=== PATIENT | male | born 1955 | race Caucasian/White ===

== ENCOUNTER 2018-04-17 19:19 | Inpatient (IN) | payer MEDICARE, OTHER ==
[2018-04-17 19:19] VITALS: BMI 31.4
[2018-04-17] MEDS ORDERED: Vancomycin 1 GM 1 GM/250 ML BAG IVPB STA (20:15)
[2018-04-17] MEDS ORDERED: Piperacillin/Tazobact 3.375 gm 100 ML IV STA (20:15)
[2018-04-17] MEDS ORDERED: Piperacillin/Tazobact 3.375 gm 100 ML IVPB ONE (20:42)
[2018-04-17 20:43] LABS: BASO # 0.1 K/uL (0.0-0.2); BASO % 0.9 % (0.0-2.0); EOS # 0.5 K/uL (0.0-0.7); EOS % 5.2 % (0.0-4.0); HEMOGLOBIN 13.5 g/dL (12.0-18.0); LYMPH # 1.8 K/uL (1.0-4.3); LYMPH % 19.7 % (20.0-40.0); MEAN CELL VOLUME 87.5 fL (80.0-94.0); MEAN CORPUSCULAR HEMOGLOBIN 28.7 pg (27.0-31.0); MEAN CORPUSCULAR HGB CONC 32.9 g/dL (33.0-37.0); MEAN PLATELET VOLUME 9.4 fL (7.2-11.7); MONO # 1.2 K/uL (0.0-0.8); NEUT # 5.5 K/uL (1.8-7.0); NEUT % 61.2 % (50.0-75.0); RBC 4.69 Mil/uL (4.40-5.90); RED CELL DISTRIBUTION WIDTH 13.2 % (11.5-14.5)
[2018-04-17 20:46] LABS: URINE BILIRUBIN NEGATIVE (NEGATIVE); URINE BLOOD NEGATIVE (NEGATIVE); URINE CLARITY Clear (Clear); URINE COLOR Yellow (YELLOW); URINE GLUCOSE (UA) NORMAL (Normal); URINE LEUKOCYTE ESTERASE NEG Leu/uL (Negative); URINE PROTEIN NEGATIVE (NEGATIVE); URINE UROBILINOGEN NORMAL mg/dL (0.2-1.0)
[2018-04-17 20:51] LABS: PROTHROMBIN TIME 11.3 SECONDS (9.7-12.2)
[2018-04-17 20:57] LABS: ALB/GLOB RATIO 1.2 (1.0-2.1); ALBUMIN 3.6 g/dL (3.5-5.0); ALT/SGPT 9 U/L (21-72); AST/SGOT 17 U/L (17-59); BLOOD UREA NITROGEN 24 mg/dL (9-20); GFR NON-AFRICAN AMERICAN > 60
--- NOTE | 2018-04-17 21:02 | C.PDOC ---
History Of Present Illness 62 year old male with PMHx of DM presents to the ED accompanied by his for evaluation of left buttock ulcer for the past 3 days. Patient denies fever, chills, nausea, vomit, injury, fall, trauma, rash. Time Seen by Provider: 04/17/18 20:05 Chief Complaint (Nursing): Abnormal Skin Integrity History Per: Patient History/Exam Limitations: no limitations Onset/Duration Of Symptoms: Days (3) Location Of Injury: Left: Buttock Quality Of Symptoms: Painful, Swollen Recent travel outside of the [place]: No Additional History Per: Patient Past Medical History Reviewed: Historical Data, Nursing Documentation, Vital Signs Vital Signs: Last Vital Signs Temp 98 F 04/17/18 19:41 Pulse 78 04/17/18 19:41 Resp 18 04/17/18 19:41 BP 155/88 H 04/17/18 19:41 Pulse Ox 98 04/17/18 19:41 - Medical History PMH: Diabetes Surgical History: No Surg Hx Denies: Pacemaker - [facility] Procedures CORONAR ARTERIOGR-2 CATH (11/17/12) INSERTION OF ONE VASCULAR STENT (11/17/12) INSRT OF DRUG-ELUTING CORON ARTERY STENTS(S) (11/17/12) LEFT HEART CARDIAC CATH (11/17/12) LT HEART ANGIOCARDIOGRAM (11/17/12) PERCUTANEOUS TRANSLUMINAL CORONARY ANGIOPLASTY [PTCA] (11/17/12) PROCEDURE ON SINGLE VESSEL (11/17/12) Family History: States: Unknown Family Hx - Social History Hx Alcohol Use: No Hx Substance Use: No - Immunization History Hx Tetanus Toxoid Vaccination: No Hx Influenza Vaccination: No Hx Pneumococcal Vaccination: No Review Of Systems Constitutional: Negative for: Fever, Chills Cardiovascular: Negative for: Chest Pain, Palpitations Respiratory: Negative for: Shortness of Breath Gastrointestinal: Negative for: Nausea, Vomiting, Abdominal Pain Musculoskeletal: Positive for: Leg Pain Skin: Positive for: Other (ulcer) Neurological: Negative for: Weakness, Numbness, Headache Physical Exam - Physical Exam Appears: Non-toxic, No Acute Distress Skin: Normal Color, Warm, Dry, Other (5x5 cm large area with central eschar, surrounding erythema to the keft mid buttock. no fluctuance) Head: Atraumatic, Normacephalic Eye(s): bilateral: Normal Inspection Neck: Normal ROM, Supple Chest: Symmetrical Cardiovascular: Rhythm Regular Respiratory: Normal Breath Sounds, No Rales, No Rhonchi, No Wheezing Gastrointestinal/Abdominal: Soft, No Tenderness, No Guarding, No Rebound Extremity: Normal ROM, No Tenderness, No Swelling Neurological/Psych: Oriented x3, Normal Speech, Normal Cognition Gait: Steady ED Course And Treatment - Laboratory Results Result Diagrams: 04/17/18 20:40 04/17/18 20:40 Lab Results: PT 11.3 SECONDS (9.7-12.2) 04/17/18 20:40 INR 1.0 04/17/18 20:40 APTT 30 SECONDS (21-34) 04/17/18 20:40 Total Bilirubin 0.2 mg/dL (0.2-1.3) 04/17/18 20:40 AST 17 U/L (17-59) 04/17/18 20:40 ALT 9 U/L (21-72) L 04/17/18 20:40 Alkaline Phosphatase 82 U/L (38-126) 04/17/18 20:40 Total Protein 6.6 g/dL (6.3-8.3) 04/17/18 20:40 Albumin 3.6 g/dL (3.5-5.0) 04/17/18 20:40 Globulin 3.0 gm/dL (2.2-3.9) 04/17/18 20:40 Albumin/Globulin Ratio 1.2 (1.0-2.1) 04/17/18 20:40 Urine Color Yellow (YELLOW) 04/17/18 20:40 Urine Clarity Clear (Clear) 04/17/18 20:40 Urine pH 5.0 (5.0-8.0) 04/17/18 20:40 Ur Specific [place] 1.023 (1.003-1.030) 04/17/18 20:40 Urine Protein Negative mg/dL (NEGATIVE) 04/17/18 20:40 Urine Glucose (UA) Normal mg/dL (Normal) 04/17/18 20:40 Urine Ketones Negative mg/dL (NEGATIVE) 04/17/18 20:40 Urine Blood Negative (NEGATIVE) 04/17/18 20:40 Urine Nitrate Negative (NEGATIVE) 04/17/18 20:40 Urine Bilirubin Negative (NEGATIVE) 04/17/18 20:40 Urine Urobilinogen Normal mg/dL (0.2-1.0) 04/17/18 20:40 Ur Leukocyte Esterase Neg [place]/uL (Negative) 04/17/18 20:40 Urine WBC (Auto) < 1 /hpf (0-5) 04/17/18 20:40 Urine RBC (Auto) 1 /hpf (0-3) 04/17/18 20:40 Lab Interpretation: Normal ECG: Interpreted By Ri ECG Rhythm: Sinus Rhythm ECG Interpretation: Normal Rate From EC O2 Sat by Pulse Oximetry: 98 (On RA) Pulse Ox Interpretation: Normal - Radiology CXR: Interpreted by Ri CXR Interpretation: Yes: No Acute Disease Reevaluation Time: 21:00 Reassessment Condition: Improved - Physician Consult Information Outcome Of Conversation: 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 Yañez for Gen Surg. 2030: d/w Gen Surg Leandro- will eval Medical Decision Making Medical Decision Making: chronic L buttock diabetic ulcer probably older than 3 days per HPI Disposition Doctor Will See Patient In The: Office Counseled Patient/Family Regarding: Studies Performed, Diagnosis - Disposition Disposition: HOME/ ROUTINE Disposition Time: 21:02 Condition: GOOD - Clinical Impression Clinical Impression: Skin lesion - Scribe Statement The provider has reviewed the documentation as recorded by the Scribe Ceferino Eastman All medical record entries made by the Scribe were at my direction and perso rcuz dictated by me. I have reviewed the chart and agree that the record accurately reflects my personal performance of the history, physical exam, medical decision making, and the department course for this patient. I have also personally directed, reviewed, and agree with the discharge instructions and disposition.
[2018-04-17] MEDS ORDERED: Vancomycin 1 GM 1 GM/250 ML BAG IVPB ONE (21:11)
[2018-04-17] MEDS: (Novolin R) Insulin Human Regular 100 units/ml vial SC SCH (22:06)
--- NOTE | 2018-04-17 22:07 | CP.PCM.CON ---
<Bettye Craig - Last Filed: 04/18/18 08:36> History of Present Illness - History of Present Illness History of Present Illness: Consult note for Dr. Menard Consulted for abscess/ infection of the buttock in a diabetic Patient is a 62 M with PMH HTN, HLD, DM, CAD s/p stents 2012 on effient who presents with painful infected wound on the left buttock area. patient states this began 3-4 days ago with pain, swelling and redness which have increased since that time. patient endorses fevers and chills but otherwise denies ENG, CP, SOB, abdominal pain, n/v, stool changes, blood in stool, dysuria and extremity pain/weakness. PMH:HTN, HLD, CAD s/p stents 2012, DM PSH: Umbilical hernia repair, adenoidectomy Home medications: Metformin, metoprolol, ranexa, effient, montelukast, simvasta tin, norvasc, losartan ALL: NKDA Social: denies smoking, ETOH and illicit drug use Review of Systems - Review of Systems All systems: reviewed and no additional remarkable complaints except Review of Systems: as per HPI Past Patient History - Past Social History Smoking Status: Never Smoked - CARDIAC Hx Pacemaker: No - NEUROLOGICAL Hx Paralysis: No - MUSCULOSKELETAL/RHEUMATOLOGICAL Hx Musculoskeletal Disorders: No - PSYCHIATRIC Hx Substance Use: No - SURGICAL HISTORY Hx Surgeries: Yes - ANESTHESIA Hx Malignant Hyperthermia: No Meds Allergies/Adverse Reactions: Allergies Allergy/AdvReac Type Severity Reaction Status Date / Time No Known Allergies Allergy Verified 11/16/12 15:37 - Medications Medications: Current Medications Amlodipine Besylate (Norvasc) 10 mg PO DAILY [facility] Home Med (Metformin Hcl [Fortamet]) 500 mg PO BID [facility] Home Med (Simvastatin [Simvastatin]) 20 mg PO DAILY [facility] Insulin Human Regular (Novolin R) 0 unit SC ACHS [facility]; Protocol Losartan Potassium (Cozaar) 100 mg PO DAILY [facility] Metoprolol Succinate (Toprol Xl) 100 mg PO DAILY [facility] Montelukast Sodium (Singulair) 10 mg PO DAILY [facility] Prasugrel (Effient) 10 mg PO DAILY [facility] Ranolazine (Ranexa) 500 mg PO DAILY [facility] Physical Exam - Constitutional Appears: Well, Non-toxic, No Acute Distress - Head Exam Head Exam: ATRAUMATIC, NORMOCEPHALIC - Eye Exam Eye Exam: EOMI - ENT Exam ENT Exam: Mucous Membranes Moist - Respiratory Exam Respiratory Exam: NORMAL BREATHING PATTERN - Cardiovascular Exam Cardiovascular Exam: REGULAR RHYTHM. absent: Tachycardia - GI/Abdominal Exam GI & Abdominal Exam: Soft. absent: Distended, Guarding, Tenderness - Extremities Exam Extremities exam: Negative for: calf tenderness, pedal edema - Neurological Exam Neurological exam: Alert, Oriented x3 - Psychiatric Exam Psychiatric exam: Normal Affect, Normal Mood - Skin Additional comments: large 12 cm x 13 cm area of erythema and induration over the left buttock, central area of necrosis and fibrotic tissue, no areas of fluctuance felt, entire area is tender to palpation Results - Vital Signs Recent Vital Signs: Last Vital Signs Temp 98 F 04/17/18 19:41 Pulse 78 04/17/18 19:41 Resp 18 04/17/18 19:41 BP 155/88 H 04/17/18 19:41 Pulse Ox 98 04/17/18 21:02 - Labs Result Diagrams: 04/17/18 20:40 04/17/18 20:40 Labs: Laboratory Results - last 24 hr 04/17/18 04/17/18 04/17/18 19:38 20:40 20:40 WBC 9.0 RBC 4.69 Hgb 13.5 Hct 41.0 MCV 87.5 MCH 28.7 MCHC 32.9 L RDW 13.2 Plt Count 244 MPV 9.4 Neut % (Auto) 61.2 Lymph % (Auto) 19.7 L [place] % (Auto) 13.0 H Eos % (Auto) 5.2 H Baso % (Auto) 0.9 Neut # (Auto) 5.5 Lymph # (Auto) 1.8 [place] # (Auto) 1.2 H Eos # (Auto) 0.5 Baso # (Auto) 0.1 PT 11.3 INR 1.0 APTT 30 Sodium Potassium Chloride Carbon Dioxide Anion Gap BUN Creatinine Est GFR ( Amer) Est GFR (Non-Af Amer) POC Glucose (mg/dL) 147 H Random Glucose Calcium Total Bilirubin AST ALT Alkaline Phosphatase Troponin I Total Protein Albumin Globulin Albumin/Globulin Ratio Urine Color Urine Clarity Urine pH Ur Specific [place] Urine Protein Urine Glucose (UA) Urine Ketones Urine Blood Urine Nitrate Urine Bilirubin Urine Urobilinogen Ur Leukocyte Esterase Urine WBC (Auto) Urine RBC (Auto) 04/17/18 04/17/18 20:40 20:40 WBC RBC Hgb Hct MCV MCH MCHC RDW Plt Count MPV Neut % (Auto) Lymph % (Auto) [place] % (Auto) Eos % (Auto) Baso % (Auto) Neut # (Auto) Lymph # (Auto) [place] # (Auto) Eos # (Auto) Baso # (Auto) PT INR APTT Sodium 139 Potassium 4.6 Chloride 103 Carbon Dioxide 30 Anion Gap 11 BUN 24 H Creatinine 1.2 Est GFR ( Amer) > 60 Est GFR (Non-Af Amer) > 60 POC Glucose (mg/dL) Random Glucose 126 H Calcium 9.0 Total Bilirubin 0.2 AST 17 ALT 9 L Alkaline Phosphatase 82 Troponin I < 0.0120 Total Protein 6.6 Albumin 3.6 Globulin 3.0 Albumin/Globulin Ratio 1.2 Urine Color Yellow Urine Clarity Clear Urine pH 5.0 Ur Specific [place] 1.023 Urine Protein Negative Urine Glucose (UA) Normal Urine Ketones Negative Urine Blood Negative Urine Nitrate Negative Urine Bilirubin Negative Urine Urobilinogen Normal Ur Leukocyte Esterase Neg Urine WBC (Auto) < 1 Urine RBC (Auto) 1 Assessment & Plan - Assessment and Plan (Free Text) Assessment: 62 yr old male with PMH DM, HTN, HLD and CAD s/p stents on Effient Plan: Plan: Warm compresses Q4 continue abx hold effient CT pelvis with IV contrast likely I/D in AM will discuss with Dr. Sailaja Craig, PGY 1 - Date & Time Date: 04/17/18 Time: 21:45 <Hany Menard - Last Filed: 04/25/18 20:41> Results - Vital Signs Recent Vital Signs: Last Vital Signs Temp 98.1 F 04/23/18 08:00 Pulse 63 04/23/18 08:00 Resp 20 04/23/18 08:00 BP 157/71 H 04/23/18 08:00 Pulse Ox 95 04/23/18 08:00 - Labs Result Diagrams: 04/22/18 07:41 04/22/18 07:41 Attending/Attestation - Attestation I have personally seen and examined this patient.: Yes I have fully participated in the care of the patient.: Yes I have reviewed all pertinent clinical information: Yes Notes (Text): Pt was seen and examined at bedside Agree with above note and assessment Pt with DM with Left gluteal abscess Gluteal area : Severe cellulitis with abscess present Labs and radiology reviewed Ass: Left gluteal cellulitis with underlying absces Plan: IV antibiotics At present, pt does not need I & D. Control Blood sugar C/w current mx Plan d.w pt in detail Risk and benefit explained in detail.
[2018-04-17] MEDS ORDERED: Oxycodone/Acetaminophen 5/325 mg Tab PO PRN (22:09)
[2018-04-17] MEDS ORDERED: Iohexol 350mg/ml 100 ML ONE (22:34)
[2018-04-18] MEDS: Sodium Chloride 0.9% 1,000 ML IV SCH ×2 (05:14→13:33)
[2018-04-18] MEDS: Tramadol 25 mg PO PRN (05:41)
--- NOTE | 2018-04-18 07:50 | CP.PCM.PN ---
<CraigBettye graves - Last Filed: 04/18/18 08:32> Subjective - Date & Time of Evaluation Date of Evaluation: 04/18/18 Time of Evaluation: 06:40 - Subjective Subjective: General Surgery progress note for Dr. Menard Patient seen and examined this am at bedside. No acute events overnight. pt indicates pain is slightly improved and has been well controlled overnight. He otherwise denies ENG, CP, SOB, F/C, N/V, abdominal pain, stool changes, dysuria and extremity pain/weakness. Objective - Vital Signs/Intake and Output Vital Signs (last 24 hours): Temp Pulse Resp BP Pulse Ox 97.9 F 70 20 128/67 98 04/18/18 01:00 04/18/18 01:00 04/18/18 01:00 04/18/18 01:00 04/18/18 04:00 Intake and Output: 04/18/18 04/18/18 06:59 18:59 Intake Total 200 Balance 200 - Medications Medications: Current Medications Acetaminophen (Tylenol 325mg Tab) 650 mg PO Q6 PRN PRN Reason: Pain, Mild (1-3) Amlodipine Besylate (Norvasc) 10 mg PO DAILY [facility] Home Med (Metformin Hcl [Fortamet]) 500 mg PO BID [facility] Home Med (Simvastatin [Simvastatin]) 20 mg PO DAILY [facility] Sodium Chloride (Sodium Chloride 0.9%) 1,000 mls @ 115 mls/hr IV .[id number] [facility] Last Admin: 04/18/18 05:14 Dose: 115 mls/hr Insulin Human Regular (Novolin R) 0 unit SC ACHS [facility]; Protocol Last Admin: 04/17/18 22:06 Dose: Not Given Losartan Potassium (Cozaar) 100 mg PO DAILY [facility] Metoprolol Succinate (Toprol Xl) 100 mg PO DAILY [facility] Montelukast Sodium (Singulair) 10 mg PO DAILY [facility] Prasugrel (Effient) 10 mg PO DAILY [facility] Ranolazine (Ranexa) 500 mg PO DAILY [facility] Tramadol HCl (Ultram) 25 mg PO TID PRN PRN Reason: Pain, moderate (4-7) Last Admin: 04/18/18 05:41 Dose: 25 mg - Labs Labs: 04/17/18 20:40 04/17/18 20:40 PT 11.3 SECONDS (9.7-12.2) 04/17/18 20:40 INR 1.0 04/17/18 20:40 APTT 30 SECONDS (21-34) 04/17/18 20:40 - Constitutional Appears: Well, Non-toxic, No Acute Distress - Head Exam Head Exam: ATRAUMATIC, NORMOCEPHALIC - Eye Exam Eye Exam: EOMI - ENT Exam ENT Exam: Mucous Membranes Moist - Respiratory Exam Respiratory Exam: NORMAL BREATHING PATTERN - Cardiovascular Exam Cardiovascular Exam: REGULAR RHYTHM - GI/Abdominal Exam GI & Abdominal Exam: Soft. absent: Distended, Tenderness - Extremities Exam Extremities Exam: Full ROM. absent: Calf Tenderness, Pedal Edema - Neurological Exam Neurological Exam: Alert, Awake, Oriented x3 - Psychiatric Exam Psychiatric exam: Normal Affect, Normal Mood - Skin Additional comments: large 12 cm x 13 cm area of erythema and induration over the left buttock, central area of necrosis and fibrotic tissue, no areas of fluctuance felt, entire area is tender to palpation Assessment and Plan - Assessment and Plan (Free Text) Assessment: 62 yr old male with left buttock abscess Plan: Plan: c/w abx I&D this AM with packing and wound cultures pain control as needed DM, CAD, HTN and HLD management as per primary will d/w maya Carey recs per him Bettye Briones, PGY 1 <Hany Menard B - Last Filed: 04/25/18 20:43> Objective - Vital Signs/Intake and Output Vital Signs (last 24 hours): Temp Pulse Resp BP Pulse Ox 98.1 F 63 20 157/71 H 95 04/23/18 08:00 04/23/18 08:00 04/23/18 08:00 04/23/18 08:00 04/23/18 08:00 - Labs Labs: 04/22/18 07:41 04/22/18 07:41 PT 11.3 SECONDS (9.7-12.2) 04/17/18 20:40 INR 1.0 04/17/18 20:40 APTT 30 SECONDS (21-34) 04/17/18 20:40 Attending/Attestation - Attestation I have personally seen and examined this patient.: Yes I have fully participated in the care of the patient.: Yes I have reviewed all pertinent clinical information, including history, physical exam and plan: Yes Notes (Text): Pt was seen and examined at bedside Agree with above note and assessment Pt is improving clinically Cellulitis has improved with IV antibiotics OR for I & D and Debridement tomorrow Consent NPO, IVF c.w current mx Plan d.w pt in detail Risk and benefit explained in detail.
[2018-04-18] MEDS: (Novolin R) Insulin Human Regular 100 units/ml vial SC SCH ×4 (08:30→21:26)
[2018-04-18 08:47] LABS: BASO # 0.1 K/uL (0.0-0.2); BASO % 0.8 % (0.0-2.0); EOS # 0.5 K/uL (0.0-0.7); EOS % 5.3 % (0.0-4.0); HEMOGLOBIN 13.1 g/dL (12.0-18.0); LYMPH # 1.7 K/uL (1.0-4.3); LYMPH % 16.3 % (20.0-40.0); MEAN CELL VOLUME 86.5 fL (80.0-94.0); MEAN CORPUSCULAR HEMOGLOBIN 29.1 pg (27.0-31.0); MEAN CORPUSCULAR HGB CONC 33.7 g/dL (33.0-37.0); MEAN PLATELET VOLUME 9.4 fL (7.2-11.7); NEUT % 67.6 % (50.0-75.0); RBC 4.5 Mil/uL (4.40-5.90); RED CELL DISTRIBUTION WIDTH 13.1 % (11.5-14.5); WHITE BLOOD COUNT 10.3 K/uL (4.8-10.8)
[2018-04-18 09:08] LABS: ALB/GLOB RATIO 1.1 (1.0-2.1); ALBUMIN 3.2 g/dL (3.5-5.0); ALT/SGPT 11 U/L (21-72); AST/SGOT 29 U/L (17-59); BLOOD UREA NITROGEN 19 mg/dL (9-20); CALCIUM 8.4 mg/dl (8.6-10.4); GFR NON-AFRICAN AMERICAN > 60
[2018-04-18] MEDS ORDERED: Home Med 1 UNIT (Simvastatin [Simvastatin] 20 MG) PO SCH (10:00)
[2018-04-18] MEDS ORDERED: METFORMIN HCL 500 MG PO SCH (10:00)
[2018-04-18] MEDS: Ranolazine 500 mg Extended Release Tablets PO SCH (10:18)
[2018-04-18] MEDS: Metoprolol Succinate 100 mg XL Tab PO SCH (10:18)
--- NOTE | 2018-04-18 10:19 | RAD ---
Date of service: 04/17/2018 HISTORY: SOB COMPARISON: None available. FINDINGS: LUNGS: No active pulmonary disease. PLEURA: No significant pleural effusion identified, no pneumothorax apparent. CARDIOVASCULAR: No aortic atherosclerotic calcification present. Normal cardiac size. No pulmonary vascular congestion. OSSEOUS STRUCTURES: No significant abnormalities. VISUALIZED UPPER ABDOMEN: Normal. OTHER FINDINGS: None. IMPRESSION: No active disease.
--- NOTE | 2018-04-18 12:17 | CP.PCM.CON ---
History of Present Illness - History of Present Illness History of Present Illness: INFECTIOUS DISEASE CONSULT; HPI; 62 year old male with PMH HTN, HLD, DM, CAD s/p stents 2012 on effient ,asthma ,who presents with painful infected wound on the left buttock area. Patient states this began 3-4 days ago with pain, swelling and redness which have increased since that time. Patient endorses fevers and chills but otherwise denies ENG, CP, SOB, abdominal pain, n/v, stool changes, blood in stool, dysuria and extremity pain/weakness. INFECTIOUS DISEASE CONSULTATION REQUESTED BY PMD FOR LEFT BUTTOCK ABSCESS. pATIENT DENIES ANY PREVIOUS SUCH INFECTION. PATIENT IS BEING SEEN BY SURGERY FOR DEBRIDEMENT. PMH:HTN, HLD, CAD s/p stents 2012, DM,BRONCHIAL ASTHMA. PSH: Umbilical hernia repair, adenoidectomy Home medications: Metformin, metoprolol, ranexa, effient, montelukast, simvastatin, norvasc, losartan Social: denies smoking, ETOH and illicit drug use ALLERGY; NKA. Review of Systems - Constitutional Constitutional: Chills, Fever - EENT Eyes: absent: Change in Vision Nose/Mouth/Throat: absent: Mouth Lesions - Cardiovascular Cardiovascular: absent: Chest Pain, Dyspnea - Respiratory Respiratory: absent: Cough - Gastrointestinal Gastrointestinal: absent: Abdominal Pain, Diarrhea, Nausea, Vomiting - Genitourinary Genitourinary: absent: Dysuria, Hematuria - Musculoskeletal Musculoskeletal: Radiating Pain into Limb - Integumentary Integumentary: Rash (LEFT BUTTOCK, STARTING WITH A SMALL PIMPLE AND PRESENTLY ENLARGING WITH ERYTHEMA AND WARMTH.) - Hematologic/Lymphatic Hematologic: As Per HPI. absent: Easy Bleeding, Easy Bruising, Lymphadenopathy Past Patient History - Past Social History Smoking Status: Never Smoked - CARDIAC Hx Pacemaker: No - NEUROLOGICAL Hx Paralysis: No - MUSCULOSKELETAL/RHEUMATOLOGICAL Hx Musculoskeletal Disorders: No - PSYCHIATRIC Hx Substance Use: No - SURGICAL HISTORY Hx Surgeries: Yes - ANESTHESIA Hx Malignant Hyperthermia: No Meds Allergies/Adverse Reactions: Allergies Allergy/AdvReac Type Severity Reaction Status Date / Time No Known Allergies Allergy Verified 11/16/12 15:37 - Medications Medications: Current Medications Acetaminophen (Tylenol 325mg Tab) 650 mg PO Q6 PRN PRN Reason: Pain, Mild (1-3) Amlodipine Besylate (Norvasc) 10 mg PO DAILY [facility] Last Admin: 04/18/18 10:18 Dose: 10 mg Home Med (Metformin Hcl [Fortamet]) 500 mg PO BID [facility] Sodium Chloride (Sodium Chloride 0.9%) 1,000 mls @ 115 mls/hr IV .Q8H42M [facility] Last Admin: 04/18/18 05:14 Dose: 115 mls/hr Insulin Human Regular (Novolin R) 0 unit SC ACHS [facility]; Protocol Last Admin: 04/18/18 08:30 Dose: Not Given Losartan Potassium (Cozaar) 100 mg PO DAILY [facility] Last Admin: 04/18/18 10:18 Dose: 100 mg Metoprolol Succinate (Toprol Xl) 100 mg PO DAILY [facility] Last Admin: 04/18/18 10:18 Dose: 100 mg Montelukast Sodium (Singulair) 10 mg PO DAILY [facility] Last Admin: 04/18/18 10:18 Dose: 10 mg Prasugrel (Effient) 10 mg PO DAILY [facility] Ranolazine (Ranexa) 500 mg PO DAILY [facility] Last Admin: 04/18/18 10:18 Dose: 500 mg Rosuvastatin Calcium (Crestor) 5 mg PO [facility] Tramadol HCl (Ultram) 25 mg PO TID PRN PRN Reason: Pain, moderate (4-7) Last Admin: 04/18/18 05:41 Dose: 25 mg Physical Exam - Constitutional Appears: No Acute Distress - Head Exam Head Exam: NORMAL INSPECTION - Eye Exam Eye Exam: EOMI, PERRL - ENT Exam ENT Exam: Mucous Membranes Moist, Normal Oropharynx - Neck Exam Neck exam: Positive for: Normal Inspection - Respiratory Exam Respiratory Exam: Clear to Auscultation Bilateral, NORMAL BREATHING PATTERN - Cardiovascular Exam Cardiovascular Exam: REGULAR RHYTHM, +S1, +S2 - GI/Abdominal Exam GI & Abdominal Exam: Normal Bowel Sounds, Soft - Extremities Exam Extremities exam: Positive for: tenderness (arge 12 cm x 13 cm area of erythema and induration over the left buttock, central area of necrosis and fibrotic tissue, no areas of fluctuance felt, entire area is tender to palpation). Nega tive for: calf tenderness, pedal edema - Neurological Exam Neurological exam: Alert, CN II-XII Intact, Oriented x3, Reflexes Normal - Psychiatric Exam Psychiatric exam: Normal Mood - Skin Skin Exam: Normal Color, Warm Results - Vital Signs Recent Vital Signs: Last Vital Signs Temp 97.8 F 04/18/18 08:48 Pulse 71 04/18/18 08:48 Resp 20 04/18/18 08:48 BP 126/69 04/18/18 08:48 Pulse Ox 96 04/18/18 08:48 - Labs Result Diagrams: 04/19/18 06:10 04/19/18 06:10 Labs: Laboratory Results - last 24 hr 04/17/18 04/17/18 04/17/18 19:38 20:40 20:40 WBC 9.0 RBC 4.69 Hgb 13.5 Hct 41.0 MCV 87.5 MCH 28.7 MCHC 32.9 L RDW 13.2 Plt Count 244 MPV 9.4 Neut % (Auto) 61.2 Lymph % (Auto) 19.7 L Terrell % (Auto) 13.0 H Eos % (Auto) 5.2 H Baso % (Auto) 0.9 Neut # (Auto) 5.5 Lymph # (Auto) 1.8 Terrell # (Auto) 1.2 H Eos # (Auto) 0.5 Baso # (Auto) 0.1 PT 11.3 INR 1.0 APTT 30 Sodium Potassium Chloride Carbon Dioxide Anion Gap BUN Creatinine Est GFR ( Amer) Est GFR (Non-Af Amer) POC Glucose (mg/dL) 147 H Random Glucose Calcium Total Bilirubin AST ALT Alkaline Phosphatase Troponin I Total Protein Albumin Globulin Albumin/Globulin Ratio Urine Color Urine Clarity Urine pH Ur Specific [place] Urine Protein Urine Glucose (UA) Urine Ketones Urine Blood Urine Nitrate Urine Bilirubin Urine Urobilinogen Ur Leukocyte Esterase Urine WBC (Auto) Urine RBC (Auto) 04/17/18 04/17/18 04/17/18 20:40 20:40 22:02 WBC RBC Hgb Hct MCV MCH MCHC RDW Plt Count MPV Neut % (Auto) Lymph % (Auto) Terrell % (Auto) Eos % (Auto) Baso % (Auto) Neut # (Auto) Lymph # (Auto) Terrell # (Auto) Eos # (Auto) Baso # (Auto) PT INR APTT Sodium 139 Potassium 4.6 Chloride 103 Carbon Dioxide 30 Anion Gap 11 BUN 24 H Creatinine 1.2 Est GFR ( Amer) > 60 Est GFR (Non-Af Amer) > 60 POC Glucose (mg/dL) 111 H Random Glucose 126 H Calcium 9.0 Total Bilirubin 0.2 AST 17 ALT 9 L Alkaline Phosphatase 82 Troponin I < 0.0120 Total Protein 6.6 Albumin 3.6 Globulin 3.0 Albumin/Globulin Ratio 1.2 Urine Color Yellow Urine Clarity Clear Urine pH 5.0 Ur Specific [place] 1.023 Urine Protein Negative Urine Glucose (UA) Normal Urine Ketones Negative Urine Blood Negative Urine Nitrate Negative Urine Bilirubin Negative Urine Urobilinogen Normal Ur Leukocyte Esterase Neg Urine WBC (Auto) < 1 Urine RBC (Auto) 1 04/18/18 04/18/18 04/18/18 08:31 08:31 08:35 WBC 10.3 RBC 4.50 Hgb 13.1 Hct 38.9 MCV 86.5 MCH 29.1 MCHC 33.7 RDW 13.1 Plt Count 248 MPV 9.4 Neut % (Auto) 67.6 Lymph % (Auto) 16.3 L Terrell % (Auto) 10.0 Eos % (Auto) 5.3 H Baso % (Auto) 0.8 Neut # (Auto) 7.0 Lymph # (Auto) 1.7 Terrell # (Auto) 1.0 H Eos # (Auto) 0.5 Baso # (Auto) 0.1 PT INR APTT Sodium 138 Potassium 4.3 Chloride 105 Carbon Dioxide 30 Anion Gap 8 L BUN 19 Creatinine 0.9 Est GFR ( Amer) > 60 Est GFR (Non-Af Amer) > 60 POC Glucose (mg/dL) 108 Random Glucose 113 H Calcium 8.4 L Total Bilirubin 0.2 AST 29 ALT 11 L D Alkaline Phosphatase 77 Troponin I Total Protein 6.0 L Albumin 3.2 L Globulin 2.8 Albumin/Globulin Ratio 1.1 Urine Color Urine Clarity Urine pH Ur Specific [place] Urine Protein Urine Glucose (UA) Urine Ketones Urine Blood Urine Nitrate Urine Bilirubin Urine Urobilinogen Ur Leukocyte Esterase Urine WBC (Auto) Urine RBC (Auto) 04/18/18 11:25 WBC RBC Hgb Hct MCV MCH MCHC RDW Plt Count MPV Neut % (Auto) Lymph % (Auto) Terrell % (Auto) Eos % (Auto) Baso % (Auto) Neut # (Auto) Lymph # (Auto) Terrell # (Auto) Eos # (Auto) Baso # (Auto) PT INR APTT Sodium Potassium Chloride Carbon Dioxide Anion Gap BUN Creatinine Est GFR ( Amer) Est GFR (Non-Af Amer) POC Glucose (mg/dL) 178 H Random Glucose Calcium Total Bilirubin AST ALT Alkaline Phosphatase Troponin I Total Protein Albumin Globulin Albumin/Globulin Ratio Urine Color Urine Clarity Urine pH Ur Specific [place] Urine Protein Urine Glucose (UA) Urine Ketones Urine Blood Urine Nitrate Urine Bilirubin Urine Urobilinogen Ur Leukocyte Esterase Urine WBC (Auto) Urine RBC (Auto) Assessment & Plan (1) Left buttock abscess Status: Acute (2) Diabetes mellitus Status: Acute (3) HTN (hypertension) Status: Acute (4) Asthma Status: Acute - Assessment and Plan (Free Text) Plan: PANCULTURE ESR CRP CONTINUE iv zOSYN 3.375 EVERY 8 HOURLY.04/17/18 CONTINUE iv VANCOMYCIN 1 G LOADING DOSE GIVEN F/U 750 MG EVERY 12 HOURLY . 04/17/18 WARM COMPRESSES EVERY [address] OF THE PELVIS WITH iv CONTRAST 04/17/18 REVIEWED-PHLEGMON/CELLULITIS -5.7CM INCISION AND DRAINAGE OF THE ABSCESS PER SURGERY. Will follow the patient and adjust antibiotics after obtaining cultures.
--- NOTE | 2018-04-18 12:35 | CT ---
Date of service: 04/17/2018 PROCEDURE: CT Pelvis with contrast HISTORY: abscess r/o nec fasc COMPARISON: None available. TECHNIQUE: Contiguous axial images of the pelvis with contrast. Coronal and sagittal reformats generated. Contrast dose: Omnipaque 350, 100 cc Radiation dose: Total exam DLP = 452.93 mGy-cm. This CT exam was performed using one or more of the following dose reduction techniques: Automated exposure control, adjustment of the mA and/or kV according to patient size, and/or use of iterative reconstruction technique. FINDINGS: BLADDER: Unremarkable. No mass. REPRODUCTIVE ORGANS: Unremarkable. VISUALIZED BOWEL: Unremarkable. PERITONEUM: Unremarkable, as visualized. No free fluid. No free air. LYMPH NODES: Unremarkable. No enlarged lymph nodes. VASCULATURE: No aortic atherosclerotic calcification or mural plaque present. BONES: No fracture or focal lesion. OTHER FINDINGS: Increased density of the subcutaneous fat is appreciated deep to thickened dermis at the lateral left buttocks measuring 5.7 x 2.2 cm compatible with patient's known left buttock wound. No enhancement is seen in in a peripheral pattern of suggest an abscess or lucency in the core making this likely phlegmon rather than abscess. Microabscess not completely excluded. No density changes are seen related to the left buttocks musculature. No emphysematous soft tissue changes are identified either. Further clinical correlation recommended. IMPRESSION: Left buttocks cellulitis/phlegmon 5.7 cm greatest dimension within superficial and mid depth subcutaneous fat. No emphysema is seen or prominent abscess. The differential diagnosis for this area would be hematoma/acute inflammatory reaction and others. Concordant preliminary report from Alex, 04/17/2018 11:42 p.m.. Concordant preliminary report from Alex, 04/17/2018 11:42 p.m..
[2018-04-18] MEDS: Piperacill/Tazo 3.375gm in Dex 3.375 GM/50 ML BAG IVPB SCH ×2 (13:32→21:06)
[2018-04-19] MEDS: Sodium Chloride 0.9% 1,000 ML IV SCH ×3 (00:04→16:31)
[2018-04-19] MEDS: Tramadol 25 mg PO PRN ×2 (00:05→23:49)
[2018-04-19] MEDS: Piperacill/Tazo 3.375gm in Dex 3.375 GM/50 ML BAG IVPB SCH ×3 (04:10→21:56)
[2018-04-19] MEDS: Vancomycin 750mg/NS 150 ml 150 ML IVPB SCH ×2 (04:56→16:31)
[2018-04-19 06:16] LABS: HEMOGLOBIN 13.1 g/dL (12.0-18.0); MEAN CELL VOLUME 87.9 fL (80.0-94.0); MEAN PLATELET VOLUME 9.3 fL (7.2-11.7); RBC 4.51 Mil/uL (4.40-5.90); RED CELL DISTRIBUTION WIDTH 13.1 % (11.5-14.5); WHITE BLOOD COUNT 9.5 K/uL (4.8-10.8)
[2018-04-19 06:41] LABS: IRON 40 ug/dL (49-181)
[2018-04-19 06:43] LABS: BLOOD UREA NITROGEN 17 mg/dL (9-20); CALCIUM 8.6 mg/dl (8.6-10.4); GFR NON-AFRICAN AMERICAN > 60; HDL CHOLESTEROL 19 mg/dL (30-70)
[2018-04-19 06:51] LABS: % IRON SATURATION 15 (20-55); TOTAL IRON BINDING CAPACITY 277 ug/dL (250-450)
[2018-04-19 06:53] LABS: LDL CHOLESTEROL 66 mg/dL (0-129)
[2018-04-19 07:47] LABS: FOLATE 12.2 ng/mL
--- NOTE | 2018-04-19 07:47 | HP ---
The patient was seen and examined at the bedside, 04/18/2018. was sitting on the bedside also. CHIEF COMPLAINT: Abscess on the buttock. HISTORY OF PRESENT ILLNESS: Mr. Michele Silverio is a 62-year-old male with past medical history of diabetes mellitus, came to the emergency room with his for evaluation of the left buttock abscess for the past three days. The patient denies fever, chills, nausea, vomiting, diarrhea, hematuria or hematochezia. No headache or dizziness. No chest pain or palpitation, but having intractable pain in the abscess. Has abnormal skin integrity. It is painful and swollen. We admitted the patient. Surgical consult called with Dr. Menard and tomorrow he will take the patient to OR for incision and drainage. Discussion done with the patient, with Dr. Menard's resident. PAST MEDICAL HISTORY: Diabetes mellitus. SURGICAL HISTORY: Not significant. HABITS: No smoking. No drug. No ethanol. ALLERGIES: THE PATIENT IS NOT ALLERGIC WITH ANY MEDICATION. HOME MEDICATIONS: Reviewed by me. REVIEW OF SYSTEMS: The patient was seen and examined on the bedside. was sitting on bedside also. Left buttock abscess has a dressing. No fever. No chills. No hematuria or hematochezia. No headache or dizziness. No chest pain. No palpitation. PHYSICAL EXAMINATION: VITAL SIGNS: Temperature 98, pulse 80, blood pressure 133/62, respiratory rate 20. HEENT: Head, normocephalic and atraumatic. Eyes PERRLA. Extraocular muscles are intact. Conjunctivae clear. Nose patent. NECK: Supple. No carotid bruits. No JVD or thyromegaly. CHEST: Bilaterally symmetrical. HEART: S1 and S2 positive. LUNGS: Clear to auscultation. ABDOMEN: Soft. Bowel sounds present. No organomegaly. EXTREMITIES: No edema. No cyanosis. Left buttock has a big abscess that had dressing, red and warm, tender. NEUROLOGIC: The patient is awake and alert. Follows simple commands. LABORATORY DATA: White blood cells 10.3, hemoglobin 13.1, hematocrit 38.9, platelets 248. Sodium 138, potassium 4.3, BUN 19, creatinine 0.9, glucose 198, calcium 8.4. ASSESSMENT AND PLAN: Mr. Michele Silverio is a 62-year-old male with diabetes mellitus, uncontrolled; hypocalcemia; low protein; came with abscess on the left buttock. Pelvic CT done. Seen by surgeon. Plan is for 04/19/2018, incision and drainage of gluteal abscess. Consent obtained. Continue warm compresses, intravenous antibiotics, pain management. After midnight, nothing by mouth as per Surgery. Pelvic CT shows left buttock cellulitis/phlegmon 5.7 cm in greatest diameter with superficial and mid depth subcutaneous fat. No empyema is seen or prominent abscess. The differential diagnosis of the area would be hematoma inflammation . Discussion done with the . Continue antibiotics per Infectious Disease. We will follow up. Ginger Olea MD MTDD
[2018-04-19] MEDS: (Novolin R) Insulin Human Regular 100 units/ml vial SC SCH ×4 (08:19→21:49)
--- NOTE | 2018-04-19 09:16 | CARD ---
APPROVED REPORT Date of service: 04/17/2018 EKG Measurement Heart [id number] <Conclusion> Normal sinus rhythm Normal ECG
[2018-04-19] MEDS: Metoprolol Succinate 100 mg XL Tab PO SCH (10:37)
[2018-04-19] MEDS: Ranolazine 500 mg Extended Release Tablets PO SCH (10:37)
[2018-04-19] MEDS ORDERED: Piperacillin/Tazobact 3.375 gm 100 ML IVPB ONE (13:20)
[2018-04-19] MEDS ORDERED: Propofol 10 mg/ml Inj (20 ML) ONE (13:29)
[2018-04-19] MEDS ORDERED: Midazolam 2 MG/2 ML VIAL ONE (13:29)
[2018-04-19] MEDS: Bupivacaine 0.25% 20 ML INJ IJ ONE ×2 (13:32→14:05)
[2018-04-19] MEDS: Lidocaine/Epinephrine 1% 1:100000 10 ML IJ ONE ×2 (13:32→14:04)
[2018-04-19] MEDS ORDERED: HYDROmorphone 0.5 mg/0.5 ml ISec IVP PRN (14:20)
--- NOTE | 2018-04-19 14:20 | PCM.SURG1 ---
Surgeon's Initial Post Op Note - Surgeon's Notes Surgeon: MD Sailaja Ethylene Compressor Operator: Tuyet PGY3 Pre-Operative Diagnosis: Left buttock abscess Operative Findings: left buttock necrotic tissue, purulent fluid Post-Operative Diagnosis: Left buttock abscess Operation Performed: Left buttock abscess incision and drainage, debridement of necrotic tissue Specimen/Specimens Removed: culture of abscess, necrotic tissue Estimated Blood Loss: EBL {In ML}: 10 Date of Surgery/Procedure: 04/19/18 Time of Surgery/Procedure: 14:20
[2018-04-19 15:55] VITALS: RESP 20
--- NOTE | 2018-04-19 20:42 | CP.PCM.PN ---
Subjective - Date & Time of Evaluation Date of Evaluation: 04/19/18 Time of Evaluation: 20:42 - Subjective Subjective: CHIEF COMPLAINTS TODAY : afebrile, s/p I & D LEFT BUTTOCK ABSCESS no acute events overnight ROS. HEENT : N. Resp : No cough, wheezing ,pleuritic CP ,or hemoptysis Cardio : No anginal CP, PND, orthopnea, palpitation GI : No abd.pain, n/v ,diarrhea or GI bleeding . ACID DUMPER : No headache, vertigo, focal deficit. Musculoskel : No joint swelling , Derm : No rash Psych : Normal affect. Ext : No swelling ,calf pain +VE DRY DRESSING IN PLACE PE. Pt. is alert awake in no distress. V.S As noted in the chart Head ,ear nose,throat and eyes : Normal. Neck : Supple with normal carotids. Lungs: Clear air entry. Heart : S1 & S2 normal with S4. No murmur. Abd : Soft non tender with normal bowel sounds. Neuro : Moves all ext. with no localized deficit. Ext : No edema with intact pulses.Non tender calves Derm : No rashes / decubitus ulcer.+VE DRY DRESSING IN PLACE S/P DEBRIDEMENT.LT BUTTOCK ABSCESS. LABS/RADIOLOGY: REVIEWED Objective - Vital Signs/Intake and Output Vital Signs (last 24 hours): Temp Pulse Resp BP Pulse Ox 97.5 F L 98 H 20 134/63 96 04/19/18 17:49 04/19/18 17:49 04/19/18 17:49 04/19/18 17:49 04/19/18 17:49 Intake and Output: 04/19/18 04/20/18 18:59 06:59 Intake Total 2235 Output Total 200 Balance 2035 - Medications Medications: Current Medications Acetaminophen (Tylenol 325mg Tab) 650 mg PO Q6 PRN PRN Reason: Pain, Mild (1-3) Amlodipine Besylate (Norvasc) 10 mg PO DAILY [facility] Last Admin: 04/19/18 10:37 Dose: Not Given Sodium Chloride (Sodium Chloride 0.9%) 1,000 mls @ 115 mls/hr IV .Q8H42M [facility] Last Admin: 04/19/18 16:31 Dose: 115 mls/hr Piperacillin Sod/Tazobactam Sod (Zosyn 3.375 Gm Iv Premix) 3.375 gm in 50 mls @ 100 mls/hr IVPB Q8H [facility]; Protocol Last Admin: 04/19/18 13:21 Dose: Not Given Vancomycin HCl (Vancocin 750mg/Ns 150 Ml) 150 mls @ 100 mls/hr IVPB Q12H [facility]; Protocol Last Admin: 04/19/18 16:31 Dose: 100 mls/hr Influenza Virus Vaccine (Flucelvax Quad 5935-9901 Syr) 60 mcg IM .ONCE ONE Stop: 04/20/18 10:01 Insulin Human Regular (Novolin R) 0 unit SC ACHS [facility]; Protocol Last Admin: 04/19/18 17:35 Dose: 1 units Losartan Potassium (Cozaar) 100 mg PO DAILY [facility] Last Admin: 04/19/18 10:37 Dose: 100 mg Metformin [facility] ([facility]) [facility] Last Admin: 04/19/18 17:35 Dose: 500 mg Metoprolol Succinate (Toprol Xl) 100 mg PO DAILY [facility] Last Admin: 04/19/18 10:37 Dose: 100 mg Montelukast Sodium (Singulair) 10 mg PO DAILY [facility] Last Admin: 04/19/18 10:37 Dose: Not Given Pneumococcal Polyvalent Vaccine (Pneumovax 23 Vaccine) 0.5 ml IM .ONCE ONE Stop: 04/20/18 10:01 Prasugrel (Effient) 10 mg PO DAILY [facility] Ranolazine (Ranexa) 500 mg PO DAILY [facility] Last Admin: 04/19/18 10:37 Dose: Not Given Rosuvastatin Calcium (Crestor) 5 mg PO HS [facility] Last Admin: 04/18/18 21:05 Dose: 5 mg Tramadol HCl (Ultram) 25 mg PO TID PRN PRN Reason: Pain, moderate (4-7) Last Admin: 04/19/18 00:05 Dose: 25 mg - Labs Labs: 04/19/18 06:10 04/19/18 06:10 PT 11.3 SECONDS (9.7-12.2) 04/17/18 20:40 INR 1.0 04/17/18 20:40 APTT 30 SECONDS (21-34) 04/17/18 20:40 Assessment and Plan (1) Left buttock abscess Status: Acute (2) Diabetes mellitus Status: Acute (3) HTN (hypertension) Status: Acute (4) Asthma Status: Acute - Assessment and Plan (Free Text) Plan: CONTINUE iv ZOSYN 3.375 EVERY 8 HOURLY.04/18/18 CONTINUE iv VANCOMYCIN 750 MG EVERY 12 HOURLY . 04/18/18 F/U VANCO TROUGH PRIOR TO 4TH DOSEAND KEEP BETWEEEN 10- 20MG/L F/U CULTURES TO ADJUST ABX LOCAL WOUND CARE PER SURGERY.
--- NOTE | 2018-04-20 01:37 | OP ---
PROCEDURE DATE: 04/19/2018 PREOPERATIVE DIAGNOSES: 1. Left gluteal abscess. 2. Left gluteal cellulitis. 3. Skin necrosis. POSTOPERATIVE DIAGNOSES: 1. Left gluteal abscess. 2. Left gluteal cellulitis. 3. Skin necrosis. PROCEDURES DONE: 1. Incision and drainage of left gluteal abscess. 2. Excision of the infected redundant skin of the left gluteal area approximately 8 x 6 cm size. 3. Excisional debridement of the left gluteal wound, 6 x 8 x 3 cm size. ANESTHESIA: General anesthesia with LMA. ESTIMATED BLOOD LOSS: Around 20 mL. DRAINS: None. PATHOLOGY: The pus was sent for the culture and sensitivity, debrided tissue as well as the infected necrotic skin was sent for the pathology. COMPLICATIONS: None. INTRAOPERATIVE FINDINGS: The patient had approximately 8 x 6 cm large abscess of the left gluteal area with overlying skin necrosis and cellulitis. DESCRIPTION OF PROCEDURE: On intraoperative steps, this is a 62-year-old male who was diagnosed with left gluteal abscess with cellulitis, and the patient was consented for incision and drainage. The patient was brought to the OR, placed supine on the operating table. After induction of the anesthesia, the left gluteal area was prepped and draped in a usual sterile fashion, and first an incision was made in the abscess cavity and approximately 40 to 50 mL of pus was drained and abscess cavity was entered. The septa was broken down. Now, the overlying necrotic infected skin was also excised and it was sent off the table for the pathology, and now the excisional debridement of the underlying wound was done where there was excessive necrotic tissue and with the blunt and sharp dissection, the abscess cavity debridement was done and dissection was carried down upto the healthy tissue in all the directions and after that hemostasis was achieved. Wound was irrigated. The wound was packed with wet Kerlix and after that a dry sterile dressing was applied. The patient tolerated the procedure well. Count of instrument and gauze was correct. There was no apparent complication. The patient was reversed from anesthesia and sent to the postanesthesia care unit in stable condition. Hany Menard MD [facility] # [id number] MTDD
[2018-04-20] MEDS: Vancomycin 750mg/NS 150 ml 150 ML IVPB SCH ×2 (04:09→17:53)
[2018-04-20] MEDS: Piperacill/Tazo 3.375gm in Dex 3.375 GM/50 ML BAG IVPB SCH ×3 (04:12→21:33)
--- NOTE | 2018-04-20 04:21 | PN ---
DATE: 04/19/2018 SUBJECTIVE: The patient is a 62-year-old male. The patient was seen and examined at the bedside on 04/19/2018. Looking comfortable. Having pain in the left buttock. No fever. No chills. No hematuria or hematochezia. No headache or dizziness. No chest pain. No palpitation. PHYSICAL EXAMINATION: VITAL SIGNS: Temperature 97.5, pulse 98, respirations 20, blood pressure 130/66, pulse oximetry 96%. HEENT: Head: Normocephalic and atraumatic. Eyes: PERRLA. Extraocular muscles intact. Conjunctivae clear. Nose patent. Mucous membranes moist. NECK: Supple. No carotid bruit. No JVD or thyromegaly. CHEST: Bilaterally symmetrical. HEART: S1 and S2 positive. LUNGS: Clear to auscultation. ABDOMEN: Soft. Bowel sounds present. No organomegaly. EXTREMITIES: No edema. No cyanosis. NEUROLOGIC: The patient is awake, alert. Moving all four extremities. No focal deficits. MEDICATIONS: Tylenol, amlodipine, NS, Zosyn, vancomycin, influenza vaccination, insulin, losartan, metformin, metoprolol, montelukast, Pneumovax, Effient, Renagel, Crestor, tramadol. LABORATORY DATA: White blood cells 9.5, hemoglobin 13.1, hematocrit 38.8, platelets 257. Sodium 135, potassium 4.2, BUN 17, creatinine 1, glucose 147. ASSESSMENT AND PLAN: Mr. Michele Silverio is a 62-year-old male with left buttock abscess, status post incision and drainage, postoperative day first; diabetes mellitus; hypertension; asthma; and hypercholesterolemia. Continue antibiotics as per Dr. Wilmer Baires. Wound care as per surgeon. Gastrointestinal and deep venous thrombosis prophylaxis. Repeat labs. Discussion done with the patient. Getting pain medication. Ginger Olea MD
[2018-04-20] MEDS: Tramadol 25 mg PO PRN (07:04)
[2018-04-20] MEDS: (Novolin R) Insulin Human Regular 100 units/ml vial SC SCH ×4 (08:20→21:32)
[2018-04-20] MEDS: Metoprolol Succinate 100 mg XL Tab PO SCH (09:46)
[2018-04-20] MEDS: Ranolazine 500 mg Extended Release Tablets PO SCH (09:46)
[2018-04-20] MEDS ORDERED: Influenza Vaccine 60 mcg/0.5 mL SYR (4YR UP) IM ONE (10:00)
[2018-04-20] MEDS ORDERED: Pneumococcal 23-Valent Vaccine IM ONE (10:00)
--- NOTE | 2018-04-20 10:11 | CP.PCM.PN ---
<Lucius Benz - Last Filed: 04/20/18 10:06> Subjective - Date & Time of Evaluation Date of Evaluation: 04/20/18 Time of Evaluation: 10:06 - Subjective Subjective: SURGERY NOTE FOR DR. MENARD 62M seen and examined at bedside. No acute events overnight. Pain controlled, Patient tolerating diet. Objective - Vital Signs/Intake and Output Vital Signs (last 24 hours): Temp Pulse Resp BP Pulse Ox 98.0 F 69 20 137/50 L 95 04/20/18 08:32 04/20/18 08:32 04/20/18 08:32 04/20/18 08:32 04/20/18 08:32 Intake and Output: 04/20/18 04/20/18 06:59 18:59 Intake Total 1040 Balance 1040 - Medications Medications: Current Medications Acetaminophen (Tylenol 325mg Tab) 650 mg PO Q6 PRN PRN Reason: Pain, Mild (1-3) Amlodipine Besylate (Norvasc) 10 mg PO DAILY [facility] Last Admin: 04/20/18 09:46 Dose: 10 mg Sodium Chloride (Sodium Chloride 0.9%) 1,000 mls @ 115 mls/hr IV .Q8H42M [facility] Last Admin: 04/19/18 16:31 Dose: 115 mls/hr Piperacillin Sod/Tazobactam Sod (Zosyn 3.375 Gm Iv Premix) 3.375 gm in 50 mls @ 100 mls/hr IVPB Q8H [facility]; Protocol Last Admin: 04/20/18 04:12 Dose: 100 mls/hr Vancomycin HCl (Vancocin 750mg/Ns 150 Ml) 150 mls @ 100 mls/hr IVPB Q12H [facility]; Protocol Last Admin: 04/20/18 04:09 Dose: 100 mls/hr Insulin Human Regular (Novolin R) 0 unit SC ACHS [facility]; Protocol Last Admin: 04/20/18 08:20 Dose: 1 units Losartan Potassium (Cozaar) 100 mg PO DAILY [facility] Last Admin: 04/20/18 09:47 Dose: 100 mg Metformin HCl (Glucophage Xr) 500 mg PO BIDCC [facility] Last Admin: 04/20/18 08:20 Dose: 500 mg Metoprolol Succinate (Toprol Xl) 100 mg PO DAILY [facility] Last Admin: 04/20/18 09:46 Dose: 100 mg Montelukast Sodium (Singulair) 10 mg PO DAILY [facility] Last Admin: 04/20/18 09:47 Dose: 10 mg Prasugrel (Effient) 10 mg PO DAILY [facility] Ranolazine (Ranexa) 500 mg PO DAILY [facility] Last Admin: 04/20/18 09:46 Dose: 500 mg Rosuvastatin Calcium (Crestor) 5 mg PO HS [facility] Last Admin: 04/19/18 21:46 Dose: 5 mg Tramadol HCl (Ultram) 25 mg PO TID PRN PRN Reason: Pain, moderate (4-7) Last Admin: 04/20/18 07:04 Dose: 25 mg - Labs Labs: 04/19/18 06:10 04/19/18 06:10 PT 11.3 SECONDS (9.7-12.2) 04/17/18 20:40 INR 1.0 04/17/18 20:40 APTT 30 SECONDS (21-34) 04/17/18 20:40 - Constitutional Appears: Non-toxic, No Acute Distress - Respiratory Exam Respiratory Exam: Clear to Ausculation Bilateral, NORMAL BREATHING PATTERN - Cardiovascular Exam Cardiovascular Exam: REGULAR RHYTHM, +S1, +S2 - GI/Abdominal Exam GI & Abdominal Exam: Soft. absent: Distended, Firm, Guarding, Rigid, Tenderness, Rebound - Neurological Exam Neurological Exam: Alert, Awake - Skin Skin Exam: Dry, Intact, Normal Color, Warm Assessment and Plan - Assessment and Plan (Free Text) Assessment: 62M s/p incision and drainage of left buttock POD#1 Plan: - wound care nurse - Daily dressing changes Further recs discuss with Dr. Sailaja Benz, PGY3 <Hany Menard - Last Filed: 04/25/18 20:44> Objective - Vital Signs/Intake and Output Vital Signs (last 24 hours): Temp Pulse Resp BP Pulse Ox 98.1 F 63 20 157/71 H 95 04/23/18 08:00 04/23/18 08:00 04/23/18 08:00 04/23/18 08:00 04/23/18 08:00 - Labs Labs: 04/22/18 07:41 04/22/18 07:41 PT 11.3 SECONDS (9.7-12.2) 04/17/18 20:40 INR 1.0 04/17/18 20:40 APTT 30 SECONDS (21-34) 04/17/18 20:40 Attending/Attestation - Attestation I have personally seen and examined this patient.: Yes I have fully participated in the care of the patient.: Yes I have reviewed all pertinent clinical information, including history, physical exam and plan: Yes Notes (Text): Pt was seen and examined at bedside Agree with above note and assessment Pt is improving clinically C/w current Local wound care Wound care consult Plan d.w pt in detail
--- NOTE | 2018-04-20 11:34 | CP.PCM.PN ---
Subjective - Date & Time of Evaluation Date of Evaluation: 04/20/18 Time of Evaluation: 11:33 - Subjective Subjective: CHIEF COMPLAINTS TODAY : POD #1 afebrile, C/O PAIN POST OPTIVE SITE s/p I & D LEFT BUTTOCK ABSCESS 04/19/18 no acute events overnight ROS. HEENT : N. Resp : No cough, wheezing ,pleuritic CP ,or hemoptysis Cardio : No anginal CP, PND, orthopnea, palpitation GI : No abd.pain, n/v ,diarrhea or GI bleeding . 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 Musculoskel : No joint swelling , Derm : No rash Psych : Normal affect. Ext : No swelling ,calf pain +VE DRY DRESSING IN PLACE PE. Pt. is alert awake in no distress. V.S As noted in the chart Head ,ear nose,throat and eyes : Normal. Neck : Supple with normal carotids. Lungs: Clear air entry. Heart : S1 & S2 normal with S4. No murmur. Abd : Soft non tender with normal bowel sounds. Neuro : Moves all ext. with no localized deficit. Ext : No edema with intact pulses.Non tender calves Derm : No rashes / decubitus ulcer.+VE DRY DRESSING IN PLACE S/P DEBRIDEMENT.LT BUTTOCK ABSCESS. LABS/RADIOLOGY: REVIEWED Objective - Vital Signs/Intake and Output Vital Signs (last 24 hours): Temp Pulse Resp BP Pulse Ox 98.0 F 69 20 137/50 L 95 04/20/18 08:32 04/20/18 08:32 04/20/18 08:32 04/20/18 08:32 04/20/18 08:32 Intake and Output: 04/20/18 04/20/18 06:59 18:59 Intake Total 1040 Balance 1040 - Medications Medications: Current Medications Acetaminophen (Tylenol 325mg Tab) 650 mg PO Q6 PRN PRN Reason: Pain, Mild (1-3) Amlodipine Besylate (Norvasc) 10 mg PO DAILY [facility] Last Admin: 04/20/18 09:46 Dose: 10 mg Ascorbic Acid (Vitamin C 500 Mg Tab) 500 mg PO DAILY [facility] Cyanocobalamin (Vitamin B12 1000 Mcg/Ml Inj) 1,000 mcg IM ONCE ONE Stop: 04/20/18 12:01 Enoxaparin Sodium (Lovenox) 40 mg SC DAILY [facility] Sodium Chloride (Sodium Chloride 0.9%) 1,000 mls @ 115 mls/hr IV .Q8H42M [facility] Last Admin: 04/19/18 16:31 Dose: 115 mls/hr Piperacillin Sod/Tazobactam Sod (Zosyn 3.375 Gm Iv Premix) 3.375 gm in 50 mls @ 100 mls/hr IVPB Q8H [facility]; Protocol Last Admin: 04/20/18 04:12 Dose: 100 mls/hr Vancomycin HCl (Vancocin 750mg/Ns 150 Ml) 150 mls @ 100 mls/hr IVPB Q12H [facility]; Protocol Last Admin: 04/20/18 04:09 Dose: 100 mls/hr Insulin Human Regular (Novolin R) 0 unit SC ACHS [facility]; Protocol Last Admin: 04/20/18 08:20 Dose: 1 units Losartan Potassium (Cozaar) 100 mg PO DAILY [facility] Last Admin: 04/20/18 09:47 Dose: 100 mg [facility] Last Admin: 04/20/18 08:20 Dose: 500 mg Metoprolol Succinate (Toprol Xl) 100 mg PO DAILY [facility] Last Admin: 04/20/18 09:46 Dose: 100 mg Montelukast Sodium (Singulair) 10 mg PO DAILY [facility] Last Admin: 04/20/18 09:47 Dose: 10 mg Prasugrel (Effient) 10 mg PO DAILY [facility] Ranolazine (Ranexa) 500 mg PO DAILY [facility] Last Admin: 04/20/18 09:46 Dose: 500 mg Rosuvastatin Calcium (Crestor) 5 mg PO HS [facility] Last Admin: 04/19/18 21:46 Dose: 5 mg Tramadol HCl (Ultram) 25 mg PO TID PRN PRN Reason: Pain, moderate (4-7) Last Admin: 04/20/18 07:04 Dose: 25 mg Zinc Sulfate (Zinc Sulfate 220 Mg Cap) 220 mg PO DAILY [facility] - Labs Labs: 04/19/18 06:10 04/19/18 06:10 PT 11.3 SECONDS (9.7-12.2) 04/17/18 20:40 INR 1.0 04/17/18 20:40 APTT 30 SECONDS (21-34) 04/17/18 20:40 Assessment and Plan (1) Left buttock abscess Status: Acute (2) Diabetes mellitus Status: Acute (3) HTN (hypertension) Status: Acute (4) Asthma Status: Acute - Assessment and Plan (Free Text) Plan: CONTINUE iv ZOSYN 3.375 EVERY 8 HOURLY.04/18/18 CONTINUE iv VANCOMYCIN 750 MG EVERY 12 HOURLY . 04/18/18 F/U VANCO TROUGH PRIOR TO 4TH DOSEAND KEEP BETWEEEN 10- 20MG/L F/U CULTURES TO ADJUST ABX LOCAL WOUND CARE PER SURGERY. CASE DISCUSSED WITH DOG SHOW JUDGE.
[2018-04-20] MEDS: Sodium Chloride 0.9% 1,000 ML IV SCH (18:00)
--- NOTE | 2018-04-20 22:04 | CP.PCM.PN ---
Subjective - Date & Time of Evaluation Date of Evaluation: 04/20/18 Time of Evaluation: 10:00 - Subjective Subjective: pt is seen and examined at bed side , looking comfortable , still had pain in the leg , s/p abcess I&D , pod # 1 , id and surgery is onthe case Objective - Vital Signs/Intake and Output Vital Signs (last 24 hours): Temp Pulse Resp BP Pulse Ox 98.1 F 76 20 157/74 H 96 04/20/18 16:00 04/20/18 16:00 04/20/18 16:00 04/20/18 16:00 04/20/18 16:00 - Medications Medications: Current Medications Acetaminophen (Tylenol 325mg Tab) 650 mg PO Q6 PRN PRN Reason: Pain, Mild (1-3) Amlodipine Besylate (Norvasc) 10 mg PO DAILY [facility] Last Admin: 04/20/18 09:46 Dose: 10 mg Ascorbic Acid (Vitamin C 500 Mg Tab) 500 mg PO DAILY [facility] Last Admin: 04/20/18 11:50 Dose: 500 mg Enoxaparin Sodium (Lovenox) 40 mg SC DAILY [facility] Sodium Chloride (Sodium Chloride 0.9%) 1,000 mls @ 115 mls/hr IV .Q8H42M [facility] Last Admin: 04/20/18 18:00 Dose: 115 mls/hr Piperacillin Sod/Tazobactam Sod (Zosyn 3.375 Gm Iv Premix) 3.375 gm in 50 mls @ 100 mls/hr IVPB Q8H [facility]; Protocol Last Admin: 04/20/18 21:33 Dose: 100 mls/hr Vancomycin HCl (Vancocin 750mg/Ns 150 Ml) 150 mls @ 100 mls/hr IVPB Q12H [facility]; Protocol Last Admin: 04/20/18 17:53 Dose: 100 mls/hr Insulin Human Regular (Novolin R) 0 unit SC ACHS [facility]; Protocol Last Admin: 04/20/18 21:32 Dose: Not Given Losartan Potassium (Cozaar) 100 mg PO DAILY [facility] Last Admin: 04/20/18 09:47 Dose: 100 mg Metformin HCl (Glucophage Xr) 500 mg PO BIDCC [facility] Last Admin: 04/20/18 16:59 Dose: 500 mg Metoprolol Succinate (Toprol Xl) 100 mg PO DAILY [facility] Last Admin: 04/20/18 09:46 Dose: 100 mg Montelukast Sodium (Singulair) 10 mg PO DAILY [facility] Last Admin: 04/20/18 09:47 Dose: 10 mg Prasugrel (Effient) 10 mg PO DAILY [facility] Ranolazine (Ranexa) 500 mg PO DAILY [facility] Last Admin: 04/20/18 09:46 Dose: 500 mg Rosuvastatin Calcium (Crestor) 5 mg PO HS [facility] Last Admin: 04/20/18 21:33 Dose: 5 mg Tramadol HCl (Ultram) 25 mg PO TID PRN PRN Reason: Pain, moderate (4-7) Last Admin: 04/20/18 07:04 Dose: 25 mg Zinc Sulfate (Zinc Sulfate 220 Mg Cap) 220 mg PO DAILY [facility] Last Admin: 04/20/18 11:46 Dose: 220 mg - Labs Labs: 04/19/18 06:10 04/19/18 06:10 PT 11.3 SECONDS (9.7-12.2) 04/17/18 20:40 INR 1.0 04/17/18 20:40 APTT 30 SECONDS (21-34) 04/17/18 20:40 Assessment and Plan - Assessment and Plan (Free Text) Assessment: s/p I&D , pod #1 , cont. anb as per id . and wound care as per surgery
[2018-04-21] MEDS: Sodium Chloride 0.9% 1,000 ML IV SCH ×2 (03:00→18:34)
[2018-04-21] MEDS: Vancomycin 750mg/NS 150 ml 150 ML IVPB SCH ×2 (03:56→18:31)
[2018-04-21] MEDS: Piperacill/Tazo 3.375gm in Dex 3.375 GM/50 ML BAG IVPB SCH ×3 (05:12→20:10)
[2018-04-21 07:47] LABS: BASO # 0.1 K/uL (0.0-0.2); BASO % 0.8 % (0.0-2.0); EOS # 0.8 K/uL (0.0-0.7); EOS % 7.8 % (0.0-4.0); HEMOGLOBIN 12.5 g/dL (12.0-18.0); LYMPH # 2.1 K/uL (1.0-4.3); LYMPH % 21.7 % (20.0-40.0); MEAN CORPUSCULAR HEMOGLOBIN 29.2 pg (27.0-31.0); MEAN CORPUSCULAR HGB CONC 33.5 g/dL (33.0-37.0); MEAN PLATELET VOLUME 9.6 fL (7.2-11.7); MONO # 0.9 K/uL (0.0-0.8); MONO % 8.7 % (0.0-10.0); RBC 4.29 Mil/uL (4.40-5.90); WHITE BLOOD COUNT 9.8 K/uL (4.8-10.8)
[2018-04-21 08:00] LABS: ALBUMIN 2.9 g/dL (3.5-5.0); ALT/SGPT 18 U/L (21-72); AST/SGOT 20 U/L (17-59); BLOOD UREA NITROGEN 13 mg/dL (9-20); CALCIUM 8.6 mg/dl (8.6-10.4); GFR NON-AFRICAN AMERICAN > 60
[2018-04-21] MEDS: (Novolin R) Insulin Human Regular 100 units/ml vial SC SCH ×3 (08:30→17:21)
[2018-04-21] MEDS: Ranolazine 500 mg Extended Release Tablets PO SCH (09:41)
[2018-04-21] MEDS: Metoprolol Succinate 100 mg XL Tab PO SCH (09:42)
[2018-04-21] MEDS: Enoxaparin 40 mg Syringe SC SCH (09:42)
--- NOTE | 2018-04-21 09:45 | CP.PCM.PN ---
<DavidYeny - Last Filed: 04/21/18 11:28> Subjective - Date & Time of Evaluation Date of Evaluation: 04/21/18 Time of Evaluation: 06:30 - Subjective Subjective: General Surgery Dr. Menard Pt S&E @bedside. No acute events overnight. Pt c/o mild pain this AM though controlled w/ meds. denies F/C, N/V. Objective - Vital Signs/Intake and Output Vital Signs (last 24 hours): Temp Pulse Resp BP Pulse Ox 97.7 F 69 20 142/64 96 04/21/18 07:53 04/21/18 07:53 04/21/18 07:53 04/21/18 07:53 04/21/18 07:53 Intake and Output: 04/21/18 04/21/18 06:59 18:59 Intake Total 2570 Balance 2570 - Medications Medications: Current Medications Acetaminophen (Tylenol 325mg Tab) 650 mg PO Q6 PRN PRN Reason: Pain, Mild (1-3) Amlodipine Besylate (Norvasc) 10 mg PO DAILY [facility] Last Admin: 04/21/18 09:42 Dose: 10 mg Ascorbic Acid (Vitamin C 500 Mg Tab) 500 mg PO DAILY [facility] Last Admin: 04/21/18 09:42 Dose: 500 mg Enoxaparin Sodium (Lovenox) 40 mg SC DAILY [facility] Piperacillin Sod/Tazobactam Sod (Zosyn 3.375 Gm Iv Premix) 3.375 gm in 50 mls @ 100 mls/hr IVPB Q8H [facility]; Protocol Last Admin: 04/21/18 05:12 Dose: 100 mls/hr Vancomycin HCl (Vancocin 750mg/Ns 150 Ml) 150 mls @ 100 mls/hr IVPB Q12H [facility]; Protocol Last Admin: 04/21/18 03:56 Dose: 100 mls/hr Insulin Human Regular (Novolin R) 0 unit SC ACHS [facility]; Protocol Last Admin: 04/21/18 08:30 Dose: 1 units Losartan Potassium (Cozaar) 100 mg PO DAILY [facility] Last Admin: 04/21/18 09:42 Dose: 100 mg Metformin HCl (Glucophage Xr) 500 mg PO BIDCC [facility] Last Admin: 04/21/18 09:00 Dose: 500 mg Metoprolol Succinate (Toprol Xl) 100 mg PO DAILY [facility] Last Admin: 04/21/18 09:42 Dose: 100 mg Montelukast Sodium (Singulair) 10 mg PO DAILY [facility] Last Admin: 04/21/18 09:42 Dose: 10 mg Prasugrel (Effient) 10 mg PO DAILY [facility] Ranolazine (Ranexa) 500 mg PO DAILY [facility] Last Admin: 04/21/18 09:41 Dose: 500 mg Rosuvastatin Calcium (Crestor) 5 mg PO HS [facility] Last Admin: 04/20/18 21:33 Dose: 5 mg Tramadol HCl (Ultram) 25 mg PO TID PRN PRN Reason: Pain, moderate (4-7) Last Admin: 04/20/18 07:04 Dose: 25 mg Zinc Sulfate (Zinc Sulfate 220 Mg Cap) 220 mg PO DAILY [facility] Last Admin: 04/21/18 09:42 Dose: 220 mg - Labs Labs: 04/21/18 07:35 04/21/18 07:35 PT 11.3 SECONDS (9.7-12.2) 04/17/18 20:40 INR 1.0 04/17/18 20:40 APTT 30 SECONDS (21-34) 04/17/18 20:40 - Constitutional Appears: Non-toxic, No Acute Distress - Head Exam Head Exam: NORMAL INSPECTION - Eye Exam Eye Exam: Normal appearance - ENT Exam ENT Exam: Mucous Membranes Moist - Respiratory Exam Respiratory Exam: NORMAL BREATHING PATTERN. absent: Accessory Muscle Use, Respiratory Distress - Cardiovascular Exam Cardiovascular Exam: REGULAR RHYTHM. absent: Bradycardia, Tachycardia - GI/Abdominal Exam GI & Abdominal Exam: Soft. absent: Distended, Tenderness - Rectal Exam Additional comments: gluteal wound w/ mild surrounding erythema. dressing c/d/i. - Extremities Exam Extremities Exam: Normal Inspection - Neurological Exam Neurological Exam: Alert, Awake, Oriented x3 - Psychiatric Exam Psychiatric exam: Normal Affect, Normal Mood - Skin Skin Exam: Dry, Normal Color, Warm Assessment and Plan - Assessment and Plan (Free Text) Assessment: 62 y/o M w/ gluteal abscess Plan: - daily wet to dry dressing change - f/u ID for transition to PO abx now that sensitivities back - cont pain management - encourage OOb to chair/Amb - strict glucose control - no further surgical intervention at this time. Pt discussed w/ Dr. Sailaja Hernandez DO PGY3 <Hany Menard B - Last Filed: 04/25/18 20:45> Objective - Vital Signs/Intake and Output Vital Signs (last 24 hours): Temp Pulse Resp BP Pulse Ox 98.1 F 63 20 157/71 H 95 04/23/18 08:00 04/23/18 08:00 04/23/18 08:00 04/23/18 08:00 04/23/18 08:00 - Labs Labs: 04/22/18 07:41 04/22/18 07:41 PT 11.3 SECONDS (9.7-12.2) 04/17/18 20:40 INR 1.0 04/17/18 20:40 APTT 30 SECONDS (21-34) 04/17/18 20:40 Attending/Attestation - Attestation I have fully participated in the care of the patient.: Yes I have reviewed all pertinent clinical information, including history, physical exam and plan: Yes Notes (Text): Pt is stable clinically Local wound care Wound care Plan d.w pt in detail
[2018-04-21] MEDS: Tramadol 25 mg PO PRN ×2 (10:26→20:37)
[2018-04-21] MEDS: Aritificial Tears (15ml) OU SCH ×4 (12:48→21:46)
--- NOTE | 2018-04-21 12:48 | CP.PCM.PN ---
Subjective - Date & Time of Evaluation Date of Evaluation: 04/21/18 Time of Evaluation: 12:48 - Subjective Subjective: CHIEF COMPLAINTS TODAY : POD #2 afebrile, C/O PAIN POST OPTIVE SITE s/p I & D LEFT BUTTOCK ABSCESS 04/19/18 no acute events overnight ROS. HEENT : N. Resp : No cough, wheezing ,pleuritic CP ,or hemoptysis Cardio : No anginal CP, PND, orthopnea, palpitation GI : No abd.pain, n/v ,diarrhea or GI bleeding . 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 Musculoskel : No joint swelling , Derm : No rash Psych : Normal affect. Ext : No swelling ,calf pain +VE DRY DRESSING IN PLACE PE. Pt. is alert awake in no distress. V.S As noted in the chart Head ,ear nose,throat and eyes : Normal. Neck : Supple with normal carotids. Lungs: Clear air entry. Heart : S1 & S2 normal with S4. No murmur. Abd : Soft non tender with normal bowel sounds. Neuro : Moves all ext. with no localized deficit. Ext : No edema with intact pulses.Non tender calves Derm : No rashes / decubitus ulcer.+VE DRY DRESSING IN PLACE S/P DEBRIDEMENT.LT BUTTOCK ABSCESS. WOUND 3CM [id number] +VE PACKING IN PLACE LABS/RADIOLOGY: REVIEWED WOUND CULTURES LT BUTTOCK +VE MSSA . Objective - Vital Signs/Intake and Output Vital Signs (last 24 hours): Temp Pulse Resp BP Pulse Ox 97.7 F 69 20 142/64 96 04/21/18 07:53 04/21/18 07:53 04/21/18 07:53 04/21/18 07:53 04/21/18 07:53 Intake and Output: 04/21/18 04/21/18 06:59 18:59 Intake Total 2570 Balance 2570 - Medications Medications: Current Medications Acetaminophen (Tylenol 325mg Tab) 650 mg PO Q6 PRN PRN Reason: Pain, Mild (1-3) Amlodipine Besylate (Norvasc) 10 mg PO DAILY [facility] Last Admin: 04/21/18 09:42 Dose: 10 mg Artificial Tears (Artificial Tears) 0 ml OU QID [facility] Ascorbic Acid (Vitamin C 500 Mg Tab) 500 mg PO DAILY [facility] Last Admin: 04/21/18 09:42 Dose: 500 mg Docusate Sodium (Colace) 100 mg PO BID [facility] Enoxaparin Sodium (Lovenox) 40 mg SC DAILY [facility] Last Admin: 04/21/18 09:42 Dose: 40 mg Piperacillin Sod/Tazobactam Sod (Zosyn 3.375 Gm Iv Premix) 3.375 gm in 50 mls @ 100 mls/hr IVPB Q8H [facility]; Protocol Last Admin: 04/21/18 12:31 Dose: 100 mls/hr Vancomycin HCl (Vancocin 750mg/Ns 150 Ml) 150 mls @ 100 mls/hr IVPB Q12H [facility]; Protocol Last Admin: 04/21/18 03:56 Dose: 100 mls/hr Insulin Human Regular (Novolin R) 0 unit SC ACHS [facility]; Protocol Last Admin: 04/21/18 12:10 Dose: 4 units Losartan Potassium (Cozaar) 100 mg PO DAILY [facility] Last Admin: 04/21/18 09:42 Dose: 100 mg Met[facility] ([facility]) [facility] Last Admin: 04/21/18 09:00 Dose: 500 mg Metoprolol Succinate (Toprol Xl) 100 mg PO DAILY [facility] Last Admin: 04/21/18 09:42 Dose: 100 mg Montelukast Sodium (Singulair) 10 mg PO DAILY [facility] Last Admin: 04/21/18 09:42 Dose: 10 mg Prasugrel (Effient) 10 mg PO DAILY [facility] Ranolazine (Ranexa) 500 mg PO DAILY [facility] Last Admin: 04/21/18 09:41 Dose: 500 mg Rosuvastatin Calcium (Crestor) 5 mg PO HS [facility] Last Admin: 04/20/18 21:33 Dose: 5 mg Tramadol HCl (Ultram) 25 mg PO TID PRN PRN Reason: Pain, moderate (4-7) Last Admin: 04/21/18 10:26 Dose: 25 mg Zinc Sulfate (Zinc Sulfate 220 Mg Cap) 220 mg PO DAILY [facility] Last Admin: 04/21/18 09:42 Dose: 220 mg - Labs Labs: 04/21/18 07:35 04/21/18 07:35 PT 11.3 SECONDS (9.7-12.2) 04/17/18 20:40 INR 1.0 04/17/18 20:40 APTT 30 SECONDS (21-34) 04/17/18 20:40 Assessment and Plan (1) Left buttock abscess Status: Acute (2) Diabetes mellitus Status: Acute (3) HTN (hypertension) Status: Acute (4) Asthma Status: Acute - Assessment and Plan (Free Text) Plan: CONTINUE iv ZOSYN 3.375 EVERY 8 HOURLY.04/18/18 CONTINUE iv VANCOMYCIN 750 MG EVERY 12 HOURLY . 04/18/18 F/U VANCO TROUGH PRIOR TO 4TH DOSEAND KEEP BETWEEEN 10- 20MG/L F/U CULTURES TO ADJUST ABX LOCAL WOUND CARE PER SURGERY. CASE DISCUSSED WITH SURGERY TEAM AND VOCATIONAL TRAINING TEACHER MS JOHNSON. CAN DC IN AM ON PO KEFLEX 500MG PO QID X 3WEEKS. PO FLORSTAR 250MG HS DAILY X 3WEEKS [facility] PER SURGERY.
[2018-04-21] MEDS: SILVASORB ANTIMICROBIAL WOUND GEL TOP SCH (14:36)
--- NOTE | 2018-04-22 01:53 | PN ---
DATE: 04/21/2018 SUBJECTIVE: The patient is a 62-year-old male. The patient was seen and examined at the bedside on 04/21/2018. Looking comfortable. No fever. No chills. No hematuria or hematochezia. No headache or dizziness. No chest pain. No palpitation. Complaining of mild pain in the abscess area, controlled with medication. PHYSICAL EXAMINATION: VITAL SIGNS: Temperature 97.7, pulse 59, respirations 20, blood pressure 142/64, and pulse oximetry 96%. HEENT: Head: Normocephalic and atraumatic. Eyes: PERRLA. Extraocular muscles intact. Conjunctivae clear. Nose patent. Mucous membranes moist. NECK: Supple. No carotid bruit. No JVD or thyromegaly. CHEST: Bilaterally symmetrical. HEART: S1 and S2 positive. LUNGS: Clear to auscultation. ABDOMEN: Soft. Bowel sounds present. No organomegaly. EXTREMITIES: No edema. No cyanosis. NEUROLOGIC: The patient is awake, alert. Moving all four extremities. No focal deficits. MEDICATIONS: Tylenol, Norvasc, vitamin C, Lovenox, vancomycin, insulin, losartan, metformin, metoprolol, montelukast, Effient, Ranexa, tramadol, and zinc sulphate. LABORATORY DATA: White blood cells 9.8, hemoglobin 12.5, hematocrit 37.5, and platelets 255. Sodium 130, potassium 4, BUN 30, creatinine 0.9, and glucose 178. ASSESSMENT AND PLAN: Mr. Michele Silverio is a 62-year-old male with a gluteal abscess, status post incision and drainage, getting daily wet to dry dressing. Infectious Disease is on the case. Continue pain medication and antibiotics. Encouraged at-home bed to the chair. glucose control. Review Dr. Menard's notes, seen by Dr. Baires, Infectious Disease also. The patient has history of hypertension, asthma. Gastrointestinal and deep venous thrombosis prophylaxis given. Positive dry dressing in place. As soon as antibiotics completed, we will discharge the patient. According to Infectious Disease, continue Zosyn. Continue vancomycin. Local wound care as per Surgery. Antibiotics per Infectious Disease. We will follow up. Ginger Olea MD [facility] # [id number] MTDD
[2018-04-22] MEDS: Vancomycin 750mg/NS 150 ml 150 ML IVPB SCH ×2 (03:45→17:20)
[2018-04-22] MEDS: Piperacill/Tazo 3.375gm in Dex 3.375 GM/50 ML BAG IVPB SCH ×3 (04:46→21:34)
[2018-04-22 07:54] LABS: BASO # 0.1 K/uL (0.0-0.2); BASO % 0.7 % (0.0-2.0); EOS # 0.6 K/uL (0.0-0.7); EOS % 7.2 % (0.0-4.0); HEMOGLOBIN 12.8 g/dL (12.0-18.0); LYMPH # 1.9 K/uL (1.0-4.3); LYMPH % 22.1 % (20.0-40.0); MEAN CELL VOLUME 86.8 fL (80.0-94.0); MEAN CORPUSCULAR HEMOGLOBIN 29.2 pg (27.0-31.0); MEAN CORPUSCULAR HGB CONC 33.7 g/dL (33.0-37.0); MEAN PLATELET VOLUME 9.2 fL (7.2-11.7); MONO # 0.8 K/uL (0.0-0.8); NEUT # 5.3 K/uL (1.8-7.0); NRBC % 0.1 % (0.0-2.0); RBC 4.37 Mil/uL (4.40-5.90); RED CELL DISTRIBUTION WIDTH 12.8 % (11.5-14.5); WHITE BLOOD COUNT 8.7 K/uL (4.8-10.8)
[2018-04-22 08:12] LABS: BLOOD UREA NITROGEN 12 mg/dL (9-20); CALCIUM 8.5 mg/dl (8.6-10.4); GFR NON-AFRICAN AMERICAN > 60
[2018-04-22] MEDS: (Novolin R) Insulin Human Regular 100 units/ml vial SC SCH ×4 (08:42→22:22)
[2018-04-22] MEDS: SILVASORB ANTIMICROBIAL WOUND GEL TOP SCH (10:01)
[2018-04-22] MEDS: Ranolazine 500 mg Extended Release Tablets PO SCH (10:36)
[2018-04-22] MEDS: Metoprolol Succinate 100 mg XL Tab PO SCH (10:36)
[2018-04-22] MEDS: Aritificial Tears (15ml) OU SCH ×4 (10:37→21:36)
[2018-04-22] MEDS: Enoxaparin 40 mg Syringe SC SCH (10:37)
--- NOTE | 2018-04-22 12:12 | CP.PCM.PN ---
Subjective - Date & Time of Evaluation Date of Evaluation: 04/22/18 Time of Evaluation: 12:12 - Subjective Subjective: CHIEF COMPLAINTS TODAY : POD #3 afebrile, ambulating s/p I & D LEFT BUTTOCK ABSCESS 04/19/18 no acute events overnight ROS. HEENT : N. Resp : No cough, wheezing ,pleuritic CP ,or hemoptysis Cardio : No anginal CP, PND, orthopnea, palpitation GI : No abd.pain, n/v ,diarrhea or GI bleeding . EXPLOSION WELDER : No headache, vertigo, focal deficit. Musculoskel : No joint swelling , Derm : No rash Psych : Normal affect. Ext : No swelling ,calf pain +VE DRY DRESSING IN PLACE PE. Pt. is alert awake in no distress. V.S As noted in the chart Head ,ear nose,throat and eyes : Normal. Neck : Supple with normal carotids. Lungs: Clear air entry. Heart : S1 & S2 normal with S4. No murmur. Abd : Soft non tender with normal bowel sounds. Neuro : Moves all ext. with no localized deficit. Ext : No edema with intact pulses.Non tender calves Derm : No rashes / decubitus ulcer.+VE DRY DRESSING IN PLACE S/P DEBRIDEMENT.LT BUTTOCK ABSCESS. WOUND 3CM [id number] +VE PACKING IN PLACE LABS/RADIOLOGY: REVIEWED WOUND CULTURES LT BUTTOCK +VE MSSA . Objective - Vital Signs/Intake and Output Vital Signs (last 24 hours): Temp Pulse Resp BP Pulse Ox 98.3 F 63 20 153/70 H 96 04/22/18 09:03 04/22/18 09:03 04/22/18 09:03 04/22/18 09:03 04/22/18 09:03 Intake and Output: 04/22/18 04/22/18 06:59 18:59 Intake Total 1160 Balance 1160 - Medications Medications: Current Medications Acetaminophen (Tylenol 325mg Tab) 650 mg PO Q6 PRN PRN Reason: Pain, Mild (1-3) Amlodipine Besylate (Norvasc) 10 mg PO DAILY [facility] Last Admin: 04/22/18 10:37 Dose: 10 mg Artificial Tears (Artificial Tears) 0 ml OU QID [facility] Last Admin: 04/22/18 10:37 Dose: 1 drop Ascorbic Acid (Vitamin C 500 Mg Tab) 500 mg PO DAILY [facility] Last Admin: 04/22/18 10:36 Dose: 500 mg Docusate Sodium (Colace) 100 mg PO BID [facility] Last Admin: 04/22/18 10:37 Dose: 100 mg Enoxaparin Sodium (Lovenox) 40 mg SC DAILY [facility] Last Admin: 04/22/18 10:37 Dose: 40 mg Piperacillin Sod/Tazobactam Sod (Zosyn 3.375 Gm Iv Premix) 3.375 gm in 50 mls @ 100 mls/hr IVPB Q8H [facility]; Protocol Last Admin: 04/22/18 12:10 Dose: 100 mls/hr Vancomycin HCl (Vancocin 750mg/Ns 150 Ml) 150 mls @ 100 mls/hr IVPB Q12H [facility]; Protocol Last Admin: 04/22/18 03:45 Dose: 100 mls/hr Insulin Human Regular (Novolin R) 0 unit SC ACHS [facility]; Protocol Last Admin: 04/22/18 12:09 Dose: 4 units Losartan Potassium (Cozaar) 100 mg PO DAILY [facility] Last Admin: 04/22/18 10:37 Dose: 100 mg [facility] ([facility]) [facility] Last Admin: 04/22/18 08:42 Dose: 500 mg Metoprolol Succinate (Toprol Xl) 100 mg PO DAILY [facility] Last Admin: 04/22/18 10:36 Dose: 100 mg Montelukast Sodium (Singulair) 10 mg PO DAILY [facility] Last Admin: 04/22/18 10:37 Dose: 10 mg Prasugrel (Effient) 10 mg PO DAILY [facility] Ranolazine (Ranexa) 500 mg PO DAILY [facility] Last Admin: 04/22/18 10:36 Dose: 500 mg Rosuvastatin Calcium (Crestor) 5 mg PO HS [facility] Last Admin: 04/21/18 21:55 Dose: 5 mg Tramadol HCl (Ultram) 25 mg PO TID PRN PRN Reason: Pain, moderate (4-7) Last Admin: 04/21/18 20:37 Dose: 25 mg Zinc Sulfate (Zinc Sulfate 220 Mg Cap) 220 mg PO DAILY [facility] Last Admin: 04/22/18 10:37 Dose: 220 mg - Labs Labs: 04/22/18 07:41 04/22/18 07:41 PT 11.3 SECONDS (9.7-12.2) 04/17/18 20:40 INR 1.0 04/17/18 20:40 APTT 30 SECONDS (21-34) 04/17/18 20:40 Assessment and Plan (1) Left buttock abscess Status: Acute (2) Diabetes mellitus Status: Acute (3) HTN (hypertension) Status: Acute (4) Asthma Status: Acute - Assessment and Plan (Free Text) Plan: CASE DISCUSSED WITH SURGERY TEAM AND MANAGER RADIATION MS JOHNSON. CAN DC ON PO KEFLEX 500MG PO QID X 2weeks PO FLORSTAR 250MG HS DAILY X 2WEEKS. f/u pt as OPD IN 1 WEEK. LWC PER SURGERY.
--- NOTE | 2018-04-22 17:19 | CP.PCM.PN ---
Subjective - Date & Time of Evaluation Date of Evaluation: 04/22/18 Time of Evaluation: 17:19 - Subjective Subjective: alert, ambulatory, no acute pain, NAD. Objective - Vital Signs/Intake and Output Vital Signs (last 24 hours): Temp Pulse Resp BP Pulse Ox 98.3 F 68 20 144/66 95 04/22/18 16:00 04/22/18 16:00 04/22/18 16:00 04/22/18 16:00 04/22/18 16:00 Intake and Output: 04/22/18 04/22/18 06:59 18:59 Intake Total 2630 Balance 2630 - Medications Medications: Current Medications Acetaminophen (Tylenol 325mg Tab) 650 mg PO Q6 PRN PRN Reason: Pain, Mild (1-3) Amlodipine Besylate (Norvasc) 10 mg PO DAILY [facility] Last Admin: 04/22/18 10:37 Dose: 10 mg Artificial Tears (Artificial Tears) 0 ml OU QID [facility] Last Admin: 04/22/18 13:33 Dose: 1 drop Ascorbic Acid (Vitamin C 500 Mg Tab) 500 mg PO DAILY [facility] Last Admin: 04/22/18 10:36 Dose: 500 mg Docusate Sodium (Colace) 100 mg PO BID [facility] Last Admin: 04/22/18 10:37 Dose: 100 mg Enoxaparin Sodium (Lovenox) 40 mg SC DAILY [facility] Last Admin: 04/22/18 10:37 Dose: 40 mg Piperacillin Sod/Tazobactam Sod (Zosyn 3.375 Gm Iv Premix) 3.375 gm in 50 mls @ 100 mls/hr IVPB Q8H [facility]; Protocol Last Admin: 04/22/18 12:10 Dose: 100 mls/hr Vancomycin HCl (Vancocin 750mg/Ns 150 Ml) 150 mls @ 100 mls/hr IVPB Q12H [facility]; Protocol Last Admin: 04/22/18 03:45 Dose: 100 mls/hr Insulin Human Regular (Novolin R) 0 unit SC ACHS [facility]; Protocol Last Admin: 04/22/18 12:09 Dose: 4 units Losartan Potassium (Cozaar) 100 mg PO DAILY [facility] Last Admin: 04/22/18 10:37 Dose: 100 mg [facility] Last Admin: 04/22/18 08:42 Dose: 500 mg Metoprolol Succinate (Toprol Xl) 100 mg PO DAILY [facility] Last Admin: 04/22/18 10:36 Dose: 100 mg Montelukast Sodium (Singulair) 10 mg PO DAILY [facility] Last Admin: 04/22/18 10:37 Dose: 10 mg Prasugrel (Effient) 10 mg PO DAILY [facility] Ranolazine (Ranexa) 500 mg PO DAILY [facility] Last Admin: 04/22/18 10:36 Dose: 500 mg Rosuvastatin Calcium (Crestor) 5 mg PO HS [facility] Last Admin: 04/21/18 21:55 Dose: 5 mg Tramadol HCl (Ultram) 25 mg PO TID PRN PRN Reason: Pain, moderate (4-7) Last Admin: 04/21/18 20:37 Dose: 25 mg Zinc Sulfate (Zinc Sulfate 220 Mg Cap) 220 mg PO DAILY [facility] Last Admin: 04/22/18 10:37 Dose: 220 mg - Labs Labs: 04/22/18 07:41 04/22/18 07:41 PT 11.3 SECONDS (9.7-12.2) 04/17/18 20:40 INR 1.0 04/17/18 20:40 APTT 30 SECONDS (21-34) 04/17/18 20:40 Assessment and Plan - Assessment and Plan (Free Text) Assessment: Patient admitted with large left buttocks abscess, s/p incision and drainage, seen and examined. Alert and orientedx3, ambulatory. Cleared by surgery, advised wound care by wound clinic. To continue with keflex 500mg po qid x 14 days then follow up with DR MANSFIELD as advised. Patient is to be discharged in am after seen by the wound care nurse. Advised to follow up with [place] on Thursday for dressing change. Plan discussed with DR Kim Chong and agreed.
[2018-04-22] MEDS: Tramadol 25 mg PO PRN (21:39)
--- NOTE | 2018-04-22 23:45 | CP.PCM.PN ---
Subjective - Date & Time of Evaluation Date of Evaluation: 04/22/18 Time of Evaluation: 10:00 - Subjective Subjective: pt is seen and examine at bed side looking comfortable ,pod #3 , getting anb. sleep and appetite is ok . no change of status , walking around , id and surgery is on the bed side . Objective - Vital Signs/Intake and Output Vital Signs (last 24 hours): Temp Pulse Resp BP Pulse Ox 98.3 F 68 20 144/66 95 04/22/18 16:00 04/22/18 16:00 04/22/18 16:00 04/22/18 16:00 04/22/18 16:00 Intake and Output: 04/22/18 04/23/18 18:59 06:59 Intake Total 2630 Balance 2630 - Medications Medications: Current Medications Acetaminophen (Tylenol 325mg Tab) 650 mg PO Q6 PRN PRN Reason: Pain, Mild (1-3) Amlodipine Besylate (Norvasc) 10 mg PO DAILY [facility] Last Admin: 04/22/18 10:37 Dose: 10 mg Artificial Tears (Artificial Tears) 0 ml OU QID [facility] Last Admin: 04/22/18 21:36 Dose: 1 drop Ascorbic Acid (Vitamin C 500 Mg Tab) 500 mg PO DAILY [facility] Last Admin: 04/22/18 10:36 Dose: 500 mg Docusate Sodium (Colace) 100 mg PO BID [facility] Last Admin: 04/22/18 17:20 Dose: 100 mg Enoxaparin Sodium (Lovenox) 40 mg SC DAILY [facility] Last Admin: 04/22/18 10:37 Dose: 40 mg Piperacillin Sod/Tazobactam Sod (Zosyn 3.375 Gm Iv Premix) 3.375 gm in 50 mls @ 100 mls/hr IVPB Q8H [facility]; Protocol Last Admin: 04/22/18 21:34 Dose: 100 mls/hr Vancomycin HCl (Vancocin 750mg/Ns 150 Ml) 150 mls @ 100 mls/hr IVPB Q12H [facility]; Protocol Last Admin: 04/22/18 17:20 Dose: 100 mls/hr Insulin Human Regular (Novolin R) 0 unit SC ACHS [facility]; Protocol Last Admin: 04/22/18 22:22 Dose: Not Given Losartan Potassium (Cozaar) 100 mg PO DAILY [facility] Last Admin: 04/22/18 10:37 Dose: 100 mg Metformin HCl (Glucophage Xr) 500 mg PO BIDCC [facility] Last Admin: 04/22/18 17:19 Dose: 500 mg Metoprolol Succinate (Toprol Xl) 100 mg PO DAILY [facility] Last Admin: 04/22/18 10:36 Dose: 100 mg Montelukast Sodium (Singulair) 10 mg PO DAILY [facility] Last Admin: 04/22/18 10:37 Dose: 10 mg Prasugrel (Effient) 10 mg PO DAILY [facility] Ranolazine (Ranexa) 500 mg PO DAILY [facility] Last Admin: 04/22/18 10:36 Dose: 500 mg Rosuvastatin Calcium (Crestor) 5 mg PO HS [facility] Last Admin: 04/22/18 21:34 Dose: 5 mg Tramadol HCl (Ultram) 25 mg PO TID PRN PRN Reason: Pain, moderate (4-7) Last Admin: 04/22/18 21:39 Dose: 25 mg Zinc Sulfate (Zinc Sulfate 220 Mg Cap) 220 mg PO DAILY [facility] Last Admin: 04/22/18 10:37 Dose: 220 mg - Labs Labs: 04/22/18 07:41 04/22/18 07:41 PT 11.3 SECONDS (9.7-12.2) 04/17/18 20:40 INR 1.0 04/17/18 20:40 APTT 30 SECONDS (21-34) 04/17/18 20:40 Assessment and Plan (1) MSSA (methicillin susceptible Staphylococcus aureus) Status: Acute (2) Asthma Status: Acute (3) Diabetes mellitus Status: Acute (4) HTN (hypertension) Status: Acute (5) Left buttock abscess Status: Acute (6) Skin lesion Status: Acute - Assessment and Plan (Free Text) Plan: cont. present treatment , oob , wound care , dc am . if cl by talon and priya , wound care by [facility]
[2018-04-23] MEDS: Vancomycin 750mg/NS 150 ml 150 ML IVPB SCH (04:00)
[2018-04-23] MEDS: Piperacill/Tazo 3.375gm in Dex 3.375 GM/50 ML BAG IVPB SCH (05:47)
[2018-04-23] MEDS: (Novolin R) Insulin Human Regular 100 units/ml vial SC SCH ×2 (08:30→12:19)
[2018-04-23 08:34] VITALS: BP 157/71; PULSE 63; TEMP 98.1; O2SAT 95
[2018-04-23] MEDS: Metoprolol Succinate 100 mg XL Tab PO SCH (09:05)
[2018-04-23] MEDS: Ranolazine 500 mg Extended Release Tablets PO SCH (09:05)
[2018-04-23] MEDS: Aritificial Tears (15ml) OU SCH ×2 (09:07→13:57)
[2018-04-23] MEDS: Enoxaparin 40 mg Syringe SC SCH (09:10)
[2018-04-23] MEDS: SILVASORB ANTIMICROBIAL WOUND GEL TOP SCH (10:20)
--- NOTE | 2018-04-23 11:21 | CP.PCM.PN ---
Subjective - Date & Time of Evaluation Date of Evaluation: 04/23/18 Time of Evaluation: 11:21 Objective - Vital Signs/Intake and Output Vital Signs (last 24 hours): Temp Pulse Resp BP Pulse Ox 98.1 F 63 20 157/71 H 95 04/23/18 08:00 04/23/18 08:00 04/23/18 08:00 04/23/18 08:00 04/23/18 08:00 Intake and Output: 04/23/18 04/23/18 06:59 18:59 Intake Total 1405 1160 Balance 1405 1160 - Medications Medications: Current Medications Acetaminophen (Tylenol 325mg Tab) 650 mg PO Q6 PRN PRN Reason: Pain, Mild (1-3) Amlodipine Besylate (Norvasc) 10 mg PO DAILY [facility] Last Admin: 04/23/18 09:06 Dose: 10 mg Artificial Tears (Artificial Tears) 0 ml OU QID [facility] Last Admin: 04/23/18 09:07 Dose: 1 drop Ascorbic Acid (Vitamin C 500 Mg Tab) 500 mg PO DAILY [facility] Last Admin: 04/23/18 09:06 Dose: 500 mg Cephalexin Monohydrate (Keflex) 500 mg PO Q6H [facility]; Protocol Docusate Sodium (Colace) 100 mg PO BID [facility] Last Admin: 04/23/18 09:06 Dose: 100 mg Enoxaparin Sodium (Lovenox) 40 mg SC DAILY [facility] Last Admin: 04/23/18 09:10 Dose: 40 mg Insulin Human Regular (Novolin R) 0 unit SC [facility]; Protocol Last Admin: 04/23/18 08:30 Dose: 2 units Losartan Potassium (Cozaar) 100 mg PO DAILY [facility] Last Admin: 04/23/18 09:06 Dose: 100 mg Metformin [facility] ([facility]) [facility] Last Admin: 04/23/18 08:40 Dose: 500 mg Metoprolol Succinate (Toprol Xl) 100 mg PO DAILY [facility] Last Admin: 04/23/18 09:05 Dose: 100 mg Montelukast Sodium (Singulair) 10 mg PO DAILY [facility] Last Admin: 04/23/18 09:06 Dose: 10 mg Prasugrel (Effient) 10 mg PO DAILY [facility] Ranolazine (Ranexa) 500 mg PO DAILY [facility] Last Admin: 02/08/19 09:05 Dose: 500 mg Rosuvastatin Calcium (Crestor) 5 mg PO HS [facility] Last Admin: 04/22/18 21:34 Dose: 5 mg Tramadol HCl (Ultram) 25 mg PO TID PRN PRN Reason: Pain, moderate (4-7) Last Admin: 04/22/18 21:39 Dose: 25 mg Zinc Sulfate (Zinc Sulfate 220 Mg Cap) 220 mg PO DAILY [facility] Last Admin: 04/23/18 09:06 Dose: 220 mg - Labs Labs: 04/22/18 07:41 04/22/18 07:41 PT 11.3 SECONDS (9.7-12.2) 04/17/18 20:40 INR 1.0 04/17/18 20:40 APTT 30 SECONDS (21-34) 04/17/18 20:40 Assessment and Plan (1) Left buttock abscess Status: Acute (2) Diabetes mellitus Status: Acute (3) HTN (hypertension) Status: Acute (4) Asthma Status: Acute
[2018-04-23] MEDS: Tramadol 25 mg PO PRN (12:22)
--- NOTE | 2018-05-03 00:50 | DS ---
The patient was seen and examined at the bedside on 04/23/2018. CHIEF COMPLAINT: Abscess on the buttocks. HISTORY OF PRESENT ILLNESS: Mr. Michele Silverio is a 62-year-old male with past medical history of diabetes mellitus, came to the emergency department with his for the evaluation of left-sided buttock abscess. For past 3 days, he took antibiotics and got treatment, but failed. Denies chills, nausea, vomiting, diarrhea. We admitted the patient, called surgical consult with Dr. Menard. He and his team did incision and drainage, started antibiotics. The patient improved, discharged. He is to follow up with wound care, primary care physician, and with Dr. Menard. PAST MEDICAL HISTORY: Diabetes mellitus. PAST SURGICAL HISTORY: Not significant. HABITS: No smoking. No drugs. No ethanol. ALLERGIES: THE PATIENT IS NOT ALLERGIC TO ANY MEDICATIONS. HOME MEDICATIONS: Reviewed by me. REVIEW OF SYSTEMS: The patient was seen and examined on the bedside. Looking comfortable. No fever, no chills. No hematuria. No hematochezia. No headache. No dizziness. No chest pain. No palpitation. Wound is getting better. PHYSICAL EXAMINATION: VITAL SIGNS: Temperature 98.1, pulse 63, respiratory rate 20, blood pressure 157/71, pulse oximetry 95%. HEENT: Head: Normocephalic, atraumatic. Eyes: PERRLA. Extraocular muscles are intact. Conjunctivae clear. Nose patent. Mucous membranes moist. NECK: Supple. No carotid bruits, JVD, or thyromegaly. CHEST: Bilaterally symmetrical. HEART: S1 and S2 positive. LUNGS: Clear to auscultation. ABDOMEN: Soft. Bowel sounds present. No organomegaly. EXTREMITIES: No edema. No cyanosis. NEUROLOGIC: The patient is awake, alert. Moving all 4 extremities. No focal deficits. MEDICATIONS: Tylenol, Norvasc, Artificial Tears, ascorbic acid, Keflex, Colace, Lovenox, insulin, Cozaar, Singulair, Ranexa, Crestor. LABORATORY DATA: White blood cells 8.7, hemoglobin 12.8, hematocrit 37.9, platelets 280. Sodium 139, potassium 4.1, BUN 10, creatinine 0.9, glucose 184. ASSESSMENT AND PLAN: Mr. Michele Silverio is a 62-year-old male with diabetes mellitus, came with abscess on the left buttock, incision and drainage done, has history of constipation and got Colace. Lovenox given for deep venous thrombosis prophylaxis. Hypertension and got Cozaar and Toprol. He has skin allergy, but getting Singulair. Renal insufficiency, got Ranexa. Hypercholesterolemia, getting Crestor. For pain, got tramadol. Left buttock abscess improved. Diabetes getting under control. Asthma under control. Discharged the patient. Keflex given by nurse practitioner, Felicitas Menchaca. Keflex 500 mg four times daily for 14 days. Follow up with Dr. Baires, Infectious Disease, wound care in [place]. The patient is alert and oriented x3, understands. is at the bedside, she understands also, will follow up in my office. Ginger Olea MD
== END 2018-04-23 14:31 | disposition home or self-care (01) | DRG 623 ==
LOC: C.ER 19:19 → EDBD 19:19 → C.9E 20:53 → C.3T 21:43 → C.9E 22:02 → C.3T 23:17 → OBSVTOIN 04-19 18:45
PROVIDERS: ADMIT Internal Medicine; ATTEND Internal Medicine
PROC: 0J990ZZ Drainage of Buttock Subcutaneous Tissue and Fascia, Open Approach (ICD-10-PCS; 2018-04-19)
PROC: 0JB90ZZ Excision of Buttock Subcutaneous Tissue and Fascia, Open Approach (ICD-10-PCS; principal; 2018-04-19 12:45)
DX: E11.622 Type 2 diabetes mellitus with other skin ulcer (principal); L02.31 Cutaneous abscess of buttock; L03.317 Cellulitis of buttock; L98.419 Non-pressure chronic ulcer of buttock with unspecified severity; E11.65 Type 2 diabetes mellitus with hyperglycemia; B95.61 Methicillin susceptible Staphylococcus aureus infection as the cause of diseases classified elsewhere; I10 Essential (primary) hypertension; I25.10 Atherosclerotic heart disease of native coronary artery without angina pectoris; J45.909 Unspecified asthma, uncomplicated; E83.51 Hypocalcemia; E78.5 Hyperlipidemia, unspecified; E78.00 Pure hypercholesterolemia, unspecified; Z95.5 Presence of coronary angioplasty implant and graft